=== PATIENT | female | born 1955 | race Caucasian/White ===

== ENCOUNTER 2016-12-19 16:04 | Emergency (ER) | payer BC ==
[~2016-12-19 16:04] MED LIST: ASPI81TA9 PO; BENA25CA2 PO; CHOL100025 CHEW; CHRO1TAB; CO Q100C9 PO; CYMB60CA PO; DICL75TA PO; DILT0.05 PO; DIOV320T PO; ECHI80CA PO; EPIP0.3I IM; FAMO1TAB73 PO; FENO50TA PO; FLUC150T PO; FURO20TA PO; GABA300C5 PO; KRIL300C PO; LEVEMIR SQ; MAGN500T5 PO; METF-382 PO; METF1000 PO; NEXI40CA PO; POTA-163 PO; PRED-503 PO; SIMV20TA PO
== END 2016-12-19 16:43 | disposition left against medical advice (07) ==
LOC: PHED 16:04
DX: M25.511 Pain in right shoulder (principal)
CPT/HCPCS: 99281

== ENCOUNTER 2016-12-19 17:20 | Emergency (ER) | payer BC ==
[~2016-12-19] VITALS: Ht 157.5 cm; Wt 87.0 kg
[2016-12-19 17:34] VITALS: BP 177/69; PULSE 86; RESP 20; TEMP 98.5; O2SAT 98
--- NOTE | 2016-12-19 17:59 | PD ---
HPI Chief Complaint: Musculoskeletal Complaint Time Seen by Provider: 17:53 Travel History International Travel<30 days: No Contact w/Intl Traveler<30days: No Traveled to known affect area: No History of Present Illness HPI Patient is a 61-year-old female presenting with right shoulder pain. Acute onset at noon today. Denies any trauma or injury. It is sharp. It is anterior and lateral. It does not radiate. It is worse with movement. She denies any weakness or paresthesia. She denies chest pain or shortness of breath. No attempts at palliation. She states she has arthralgias is on diclofenac for this. She has fibromyalgia and has home Percocet but she never takes it because it makes her too sleepy. She denies any pain or weakness in her mid to low back, left upper extremity, bilateral lower extremities and neck. She denies any speech difficulties. No history of chronic shoulder issues. PFSH Past Medical History Arthritis: Yes High Cholesterol: Yes Diabetes: Yes Patient Takes Glucophage: Yes Diminished Hearing: No Fibromyalgia: Yes GERD: Yes Hypertension: Yes Tetanus Vaccination: < 5 Years Influenza Vaccination: Yes ?: Not Past Surgical History Cholecystectomy: Yes Hysterectomy: Yes Tonsillectomy: Yes Other Surgery: Yes (BLADDER PACER) Social History Alcohol Use: Yes (OCCASIONAL) Tobacco Use: Yes (5 CIGS A DAY) Substance Use: No Allergies-Medications (Allergen,Severity, Reaction): Coded Allergies: No Known Allergies (Verified , 09/16/16) Reported Meds & Prescriptions Reported Meds & Active Scripts Active Reported Magnesium Gluconate 500 Mg Tab 400 Mg PO DAILY Chromium 1,000 Mcg Tab Co Q 10 (Coenzyme Q10 (Ubidecarenone)) 100 Mg Cap 200 Mg PO DAILY Krill Oil 300 Mg Cap 1 Cap PO DAILY Vitamin D3 (Cholecalciferol) 1,000 Unit Chew 1,000 Units CHEW DAILY Echinacea 80 Mg Cap 33 Mg PO DAILY Aspirin Low Dose (Aspirin) 81 Mg Tabdr 81 Mg PO DAILY Metformin ER (Metformin HCl) 1,000 Mg Sherita 500 Mg PO BID With evening meal Fluconazole 150 Mg Tab 150 Mg PO ONCE Gabapentin 300 Mg Cap 300 Mg PO BID Diclofenac Sodium DR (Diclofenac Sodium) 75 Mg Tabdr 75 Mg PO BID Potassium Chloride ER (Potassium Chloride) 20 Meq Tab 30 Meq PO DAILY Nexium (Esomeprazole DR) 40 Mg Capdr 40 Mg PO DAILY Diltiazem ER 24 HR 180 Mg Sherita 180 Mg PO DAILY Furosemide 20 Mg Tab 20 Mg PO BID Diovan (Valsartan) 320 Mg Tab 320 Mg PO DAILY Tricor (Fenofibrate) 145 Mg Tab 145 Mg PO DAILY Takw with food. Cymbalta DR (Duloxetine HCl) 60 Mg Capdr 60 Mg PO DAILY Simvastatin 20 Mg Tab 20 Mg PO DAILY Levemir Inj (Insulin Detemir) 1,000 unit/ 10 ML Vial 50 Units SQ HS Do not mix with any other Insulin. Review of Systems Except as stated in HPI: all other systems reviewed are Neg Physical Exam Narrative GENERAL: Well-developed and well-nourished adult female in no acute distress. SKIN: Warm and dry. Good turgor without tenting. HEAD: Normocephalic and atraumatic. EYES: PERRL bilaterally, 5mm. EOMI bilaterally. No injection or icterus present. No proptosis. Lids without edema or erythema. ENT: Buccal mucosa pink and moist. Oropharynx free of erythema, tonsillar hypertrophy, masses, swelling, asymmetry and exudates. Uvula midline and airway patent. NECK: Supple, no midline tenderness, crepitus or step-offs. Trachea midline, no JVD. Negative bilateral carotid bruits. No cervical or facial lymphadenopathy. CARDIOVASCULAR: Regular rate and rhythm without murmurs, rubs, clicks or gallops. Radial pulses 2+ bilaterally. Capillary refill less than 2 seconds distal tip of all fingers of right hand. RESPIRATORY: Clear to auscultation bilaterally with symmetrical rise and fall, no distress or use of accessory muscles. MUSCULOSKELETAL: Right shoulder is grossly unremarkable, no edema or discoloration or skin lesions. Patient is favoring the arm holding it up against her body and refuses to move it secondary to pain. There is no sulcus sign or squaring off. Diffusely tender to palpation over the posterior supraspinatus and infraspinatus and humeral head. No acromioclavicular, clavicular, sternal or clavicular, elbow or humeral shaft tenderness. Patient freely able to flex and extend the elbow on the right without difficulty. Refuses to move the shoulder so cannot evaluate special tests. Extremities without clubbing, cyanosis, or edema. No obvious deformities. NEUROLOGIC: CN II-XII grossly intact. Awake and alert. Strength 5/5 bilateral elbow extension, elbow flexion, wrist extension, wrist flexion. Sensation intact and strength 5/5 over radial, median, and ulnar nerve distributions bilaterally. Bilateral triceps, biceps and brachial radialis DTRs 2+. Negative bilateral Ilene sign. Normal speech. PSYCHIATRIC: Appropriate mood and affect; insight and judgment normal. Data Data Last Documented VS Vital Signs Date Time Temp Pulse Resp B/P Pulse Ox O2 Delivery O2 Flow Rate FiO2 12/19/16 17:34 98.5 86 20 177/69 98 Orders Shoulder, Complete (>2vws) (12/19/16 17:50) Ice/Cold Pack (12/19/16 17:50) Methylprednisolone So Succ Inj (Solumedr (12/19/16 18:00) Acetamin-Hydrocod 325-7.5 Mg ([place] 7.5 (12/19/16 18:30) Chest, Single Ap (12/19/16 ) Electrocardiogram (12/19/16 18:40) Splint Or Brace Apply/Monitor (12/19/16 19:48) MDM Medical Decision Making Medical Screen Exam Complete: Yes Emergency Medical Condition: Yes Interpretation(s) Last 24 hours Impressions Shoulder X-Ray 12/19/16 1750 Signed Impressions: Service Date/Time: December 18:05 - CONCLUSION: Minimal degenerative changes. Otherwise normal radiographic appearance of the right shoulder. No fracture or subluxation. Devin Holly MD Chest X-Ray 12/19/16 0000 Signed Impressions: Service Date/Time: December 19:32 - CONCLUSION: No evidence of acute cardiopulmonary disease. No free air demonstrated in the upper abdomen. Devin Holly MD Differential Diagnosis Shoulder pain versus tendinitis versus bursitis versus arthralgia Narrative Course Patient's a 61-year-old female with history of diabetes, hypertension, arthralgias and fibromyalgia worsening with acute onset right shoulder pain at noon today. Denies injury. On exam there is no edema or discoloration. Diffuse to tender to palpation. Cannot evaluate movements and strength in the shoulder as patient refuses to move it secondary to pain. The elbow, wrist and fingers are all nontender to palpation with normal range of motion and she is neurovascular intact over dermatomes in my attempts I can evaluate. She denies any abdominal pain and has had a history of cholecystectomy. Has had shingles in the past. As she is on chronic NSAID therapy patient was given slight Medrol 125 mg IM for anti-inflammatory effect as well as I ordered x-ray of the right shoulder. Shoulders x-rays unremarkable. Spoke with as I was concerned about possible non-muscular etiologies although she is rather point tender over muscles specifically. He also evaluated the patient and agrees is likely musculoskeletal. Recommend AP chest and EKG as well. Shoulder x-ray shows minimal degenerative changes, was unremarkable. AP chest x-ray is unremarkable. EKG shows right bundle tom block was present previously. There are T-wave inversions in some leads that are also present on previous EKG. No appreciable difference or new ST-T changes. Patient to continue sent to deny chest pain and in fact her 10 out of 10 pain is now 6 out of 10 after Lortab. She'll be discharged with diagnosis of shoulder pain. States pain to the patient that she should follow-up with her PCP tomorrow and return if develops any new or worsening symptoms. If she develops a rash not to be alarmed as this could be shingles and have reevaluation here or at PCP.See discharge paperwork for further instructions. The plan was discussed with the patient who acknowledged their understanding and agreement. Reinforced the follow-up with primary care is critically important. Patient instructed on emergent conditions that should prompt return to ED. Diagnosis Primary Impression: Shoulder pain, acute Qualified Code: M25.511 - Acute pain of right shoulder Patient Instructions: General Instructions, Shoulder Pain (ED) Additional Instructions: Rest for 24 hours, then gradually resume normal activity Avoid maneuvers or positions that aggravate the pain Avoid twisting/bending or lifting heavy items Take home medications as prescribed Take home Percocet as needed for pain Warm, moist heat applied to painful areas hourly as needed Wear shoulder sling as needed for pain but no longer than 1-2 days and then do range of motion exercises demonstrated to you Try to massage and stretch affected muscles after applying heat to speed recovery Follow-up with PCP in 1-2 days Return to ED for any acute worsening of symptoms Disposition: 01 DISCHARGE HOME Condition: Stable Devin Florence III Dec 19, 2016 17:59
[2016-12-19] MEDS ORDERED: methylPREDNISolone SOD SUCC 125 MG/2 ML VIAL IM ONE (18:00)
--- NOTE | 2016-12-19 18:25 | RADHPO ---
EXAM DATE/TIME: 12/19/2016 18:05 [facility] COMPARISON: No previous studies available for comparison. INDICATIONS : Patient states right shoulder pain, no known trauma to arm. MEDICAL HISTORY : None. SURGICAL HISTORY : None. ENCOUNTER: Initial ACUITY: 1 day PAIN SCORE: 10/10 LOCATION: Right Shoulder FINDINGS: Bones of the right shoulder are intact and normally aligned. Very mild osteoarthritis seen at the acr omioclavicular and glenohumeral joints. Soft tissues are within normal limits. CONCLUSION: Minimal degenerative changes. Otherwise normal radiographic appearance of the right shoulder. No frac ture or subluxation. Devin Holly MD on December 19, 2016 at 18:23 Board Certified Radiologist. This report was verified electronically.
[2016-12-19] MEDS ORDERED: ACETAMINOPHEN/HYDROcodone 325 MG/7.5 MG TAB PO ONE (18:30)
--- NOTE | 2016-12-19 19:44 | RADHPO ---
EXAM DATE/TIME: 12/19/2016 19:32 [facility] COMPARISON: No previous studies available for comparison. INDICATIONS : Shortness of breath. MEDICAL HISTORY : None. SURGICAL HISTORY : None. ENCOUNTER: Initial ACUITY: 1 day PAIN SCORE: 0/10 LOCATION: Bilateral chest FINDINGS: A single view of the chest demonstrates the lungs to be symmetrically aerated without evidence of mas s, infiltrate or effusion. The cardiomediastinal contours are unremarkable. Osseous structures are intact. CONCLUSION: No evidence of acute cardiopulmonary disease. No free air demonstrated in the upper abdomen. Devin Holly MD on December 19, 2016 at 19:42 Board Certified Radiologist. This report was verified electronically.
--- NOTE | 2016-12-20 13:30 | EKG ---
Date Performed: 12/19/2016 Time Performed: 19:47:54 PTAGE: 61 years EKG: Sinus rhythm Right bundle branch block Inferior T wave changes are nonspecific Abnormal ECG PREVIOUS TRACING : 09/16/2016 12.10.20 Since previous tracing, no significant change noted DOCTOR: Olive Ortega Interpretating Date/Time 12/20/2016 13:29:08
== END 2016-12-19 20:22 | disposition home or self-care (01) ==
LOC: PHEFT 17:20
DX: M25.511 Pain in right shoulder (principal); M79.7 Fibromyalgia; I10 Essential (primary) hypertension; F17.210 Nicotine dependence, cigarettes, uncomplicated
CPT/HCPCS: 71010; 73030; 93005; 96372; 99283; J2930

== ENCOUNTER 2018-05-19 18:35 | Observation (INO) ==
[2018-05-19] MEDS ORDERED: Sod Chloride 0.9% Inj 1,000 ML IV.SIG ONE ×2 (20:42→20:52)
--- NOTE | 2018-05-19 20:46 | ED ---
HPI General Chief complaint: Medical Clearance Stated complaint: dr epstein/blood sugar Time Seen by Provider: 05/19/18 20:40 History of Present Illness HPI narrative: The patient is a 63 year old female who presents to the [facility] emergency department with a history of difficult to control blood sugars over the last couple of weeks. She went to see her primary care physician on Friday and her insulin regimen was further adjusted. She reports that she was changed from 60 units of Levemir in the evening to 35 units in the a.m. and 35 units in the p.m. Since then her blood sugar has been even higher. She reports that she is also recently had problems with 2 teeth in the left maxilla. She reports that she was referred to the dentist, however the dentist refuses to do any interventions until her blood sugar is under better control. She was recently placed on antibiotic and Toradol. The antibiotic [facility]. The patient reports having polyuria, however not polydipsia. She reports that she did have one episode of vomiting last week. She reports having generalized weakness and fatigue. She denies having any known fevers or chills. Otherwise on review of systems she denies having any cough or congestion, neck pain, chest pain, shortness of breath, abdominal pain, diarrhea, dysuria, urinary urgency, or neurologic symptoms. Onset (ago): week(s) Related Data Allergies Allergy/AdvReac Type Severity Reaction Status Date / Time No Known Allergies Allergy Uncoded 09/16/16 12:27 Review of Systems ROS Unobtainable All other systems reviewed negative except as stated in HPI Except as stated in HPI: all other systems reviewed are negative PMFSH History History Provided By: Patient Medical History Medical History Arthritis (Acute) Carpal tunnel syndrome (Acute) Diabetes (Acute) GERD (gastroesophageal reflux disease) (Acute) HTN (hypertension) (Acute) H/O: hysterectomy (Acute) Hyperlipidemia (Acute) Surgical History Surgical History H/O knee surgery (Acute) History of bladder surgery (Acute) Hx of cholecystectomy (Acute) Social History Social History Substance History: No History of Abuse Smoking Status: Former smoker Tobacco Type: Cigarettes Packs Per Day: 1 Cigarettes Per Day: 20.0 years: 44 How Often Do You Have a Drink Containing Alcohol: Monthly or less Recent Travel in [facility] within the Last 8 Weeks: No Recent Out of Country Travel within the Last 8 Weeks: No Exam Const General: no acute distress [facility] Head: normocephalic and atraumatic Nose: no nasal discharge and no epistaxis Mouth: moist mucous membranes and other (The area of interest, the left maxilla the patient has dental decay of her most posterior 2 teeth, with surrounding gingival erythema, no edema, no abscess formation.) Teeth and gingiva: gingiva abnormal and poor dentition Throat: posterior oropharynx normal Eyes Sclera: normal sclerae Pupils: PERRL Neck Neck: trachea midline and no JVD Resp Effort & Inspection: no use of accessory muscles Auscultation: clear to auscultation bilaterally Cardio Rate: regular rate Rhythm: regular rhythm Heart Sounds: no gallops, no murmurs and no rubs GI Inspection: non-distended Palpation: soft, no hepatosplenomegaly and nontender Back/Spine/Pelvis Back: no CVA tenderness Thoracic/Lumbar Spine: thoracic and lumbar spine normal to inspection Skin General: dry skin (warm) Neuro General: alert and awake Cranial Nerves: other Speech: speech normal Motor: no movement abnormalities noted Extrem General: normal to inspection, no clubbing, no cyanosis, no edema and other (No calf tenderness on palpation.) Psych Mood: congruent mood Affect: normal affect Judgment: judgment good Course Hospital Course: During the course of the patient's emergency department visit, the patient's history, examination, and differential diagnosis were reviewed with the patient. The patient was placed on a apple turner with oximetry and frequent blood pressure monitoring. The patient had IV access obtained and blood work sent for analysis. The patient will undergo an evaluation to rule out an arrival was in the 500s. The patient will have a beta hydroxybutyrate ordered, VBG ordered. In the meantime, the patient was started on normal saline 1 L IV fluid bolus. The patient was given Augmentin 875 mg for gingivitis associated with dental decay of the left maxilla. The patient's hyperglycemia could certainly be contributed to by a dental infection. Consultations Consultation #1: The patient's case including history, pertinent physical examination findings, and laboratory studies were discussed with FP resident. It was agreed that the patient would be admitted to the FP residents service. Initial Documented Vital Signs Temperature 98.6 F 05/19/18 20:04 Respiratory Rate 16 05/19/18 20:04 Blood Pressure 210/89 H 05/19/18 20:04 Pulse Oximetry 98 05/19/18 20:04 Last Documented Vital Signs Temperature 98.6 F 05/19/18 20:04 Pulse Rate 86 05/19/18 21:23 Respiratory Rate 18 05/19/18 21:23 Blood Pressure 187/87 H 05/19/18 21:23 Pulse Oximetry 98 05/19/18 21:23 Medical Decision Making MDM Narrative Medical decision making narrative: The patients initial evaluation and is remarkable for a white count of 7.3, hemoglobin 16.8, differential is remarkable for a monocytosis at 8.1. PT 9.4, PTT 21.9. ABG reveals a pH of 7.48, ruling out DKA, therefore the patient will be given regular insulin 10 units subcutaneously 1. CMP is remarkable for a sodium of 132, glucose 425, lipase 3065, therefore the patient will be admitted to the hospital for acute pancreatitis, chloride 97, calcium 10.4, BUN 28. CPK within normal limits, troponin I is less than 0.02. Chest x-ray that shows no acute abnormality. Given the patient's acute pancreatitis, a CT scan of the abdomen and pelvis will be ordered to further evaluate. The patient has no signs of increased liver function tests to suggest a gallstone pancreatitis. The patient is followed by the [facility] resident, Dr. Gonzalez, therefore the patient will be admitted to the [facility] teaching service. The patient's results were discussed with the patient, including the plan of care. I explained that further testing and/ or monitoring is indicated based on the patient's history, examination, and/ or laboratory findings. Therefore, I recommended admission for additional evaluation. The patient expressed understanding and was agreeable with this plan. The patient was admitted to the hospital in stable condition and sent to a bed under the care of the [facility] practice resident. Differential Diagnosis Differential Diagnosis: Acute pancreatitis, versus DKA, versus hyperglycemic hyperosmolality, versus dehydration, versus other electrolyte derangements. Medical Records Medical records reviewed: Yes I reviewed the patient's medical records. Lab Data Lab results reviewed: Yes I reviewed the patient's lab results. Result diagrams: 05/19/18 21:00 05/19/18 21:00 Lab Results 05/19/18 05/19/18 05/19/18 Range/Units 20:20 21:00 21:00 WBC 7.3 (4.0-11.0) th/mm3 RBC 5.67 H (4.00-5.30) mil/mm3 Hgb 16.8 H (11.6-15.3) gm/dL Hct 49.6 H (35.0-46.0) % MCV 87.6 (80.0-100.0) fL MCH 29.7 (27.0-34.0) pg MCHC 33.9 (32.0-36.0) % RDW 12.7 (11.6-17.2) % Plt Count 278 (150-450) th/mm3 MPV 7.9 (7.0-11.0) fL Neut % (Auto) 51.1 (16.0-70.0) % Lymph % (Auto) 37.8 (9.0-44.0) % [place] % (Auto) 8.1 H (0.0-8.0) % Eos % (Auto) 2.1 (0.0-4.0) % Baso % (Auto) 0.9 (0.0-2.0) % Neut # (Auto) 3.8 (1.8-7.7) th/mm3 Lymph # (Auto) 2.8 (1.0-4.8) th/mm3 [place] # (Auto) 0.6 (0.0-0.9) th/mm3 Eos # (Auto) 0.2 (0.0-0.4) th/mm3 Baso # (Auto) 0.1 (0.0-0.2) th/mm3 WBC Differential . Differential Comment Auto diff final PT 9.4 L (9.8-11.6) sec INR 0.9 Ratio APTT 21.9 L (24.3-30.1) sec Puncture Site Rn reji from iv Patient Temperature 98.6 VBG pH 7.48 H (7.360-7.400) VBG pCO2 34 L (44-48) mmHG VBG pO2 36 (35-40) mmHG VBG HCO3 25 (22-26) mmol/L VBG O2 Saturation 66 L (70-76) % VBG O2 Content 14.7 (9.0-17.0) Vol % VBG Base Excess 1.6 (-2-2) mmol/L VBG Carboxyhemoglobin 0.0 (0-4) % VBG Methemoglobin 0.6 (0-2) % Hemoglobin 15.9 (12.0-16.0) G/DL O2 Delivery Device Room air Inspired O2 21 % Critical Value No Sodium (136-145) meq/L Potassium (3.5-5.1) meq/L Chloride (98-107) meq/L Carbon Dioxide (21.0-32.0) meq/L Anion Gap (5-15) meq/L BUN (7-18) mg/dL Creatinine (0.50-1.00) mg/dL Estimated GFR (>89) mL/min Random Glucose (74-106) mg/dL Calcium (8.5-10.1) mg/dL Magnesium (1.5-2.5) mg/dL Total Bilirubin (0.2-1.0) mg/dL AST (15-37) U/L ALT (10-53) U/L Alkaline Phosphatase (45-117) U/L Total Creatine Kinase (26-192) U/L Troponin I (0.02-0.05) ng/mL Total Protein (6.4-8.2) g/dL Albumin (3.4-5.0) g/dL Lipase (73-393) U/L Beta-Hydroxybutyric Acd (0.00-0.39) mmol/L 05/19/18 Range/Units 21:00 WBC (4.0-11.0) th/mm3 RBC (4.00-5.30) mil/mm3 Hgb (11.6-15.3) gm/dL Hct (35.0-46.0) % MCV (80.0-100.0) fL MCH (27.0-34.0) pg MCHC (32.0-36.0) % RDW (11.6-17.2) % Plt Count (150-450) th/mm3 MPV (7.0-11.0) fL Neut % (Auto) (16.0-70.0) % Lymph % (Auto) (9.0-44.0) % [place] % (Auto) (0.0-8.0) % Eos % (Auto) (0.0-4.0) % Baso % (Auto) (0.0-2.0) % Neut # (Auto) (1.8-7.7) th/mm3 Lymph # (Auto) (1.0-4.8) th/mm3 [place] # (Auto) (0.0-0.9) th/mm3 Eos # (Auto) (0.0-0.4) th/mm3 Baso # (Auto) (0.0-0.2) th/mm3 WBC Differential Differential Comment PT (9.8-11.6) sec INR Ratio APTT (24.3-30.1) sec Puncture Site Patient Temperature VBG pH (7.360-7.400) VBG pCO2 (44-48) mmHG VBG pO2 (35-40) mmHG VBG HCO3 (22-26) mmol/L VBG O2 Saturation (70-76) % VBG O2 Content (9.0-17.0) Vol % VBG Base Excess (-2-2) mmol/L VBG Carboxyhemoglobin (0-4) % VBG Methemoglobin (0-2) % Hemoglobin (12.0-16.0) G/DL O2 Delivery Device Inspired O2 % Critical Value Sodium 132 L (136-145) meq/L Potassium 4.1 (3.5-5.1) meq/L Chloride 97 L (98-107) meq/L Carbon Dioxide 22.7 (21.0-32.0) meq/L Anion Gap 12 (5-15) meq/L BUN 28 H (7-18) mg/dL Creatinine 0.78 (0.50-1.00) mg/dL Estimated GFR 75 L (>89) mL/min Random Glucose 425 H (74-106) mg/dL Calcium 10.4 H (8.5-10.1) mg/dL Magnesium 2.2 (1.5-2.5) mg/dL Total Bilirubin 0.6 (0.2-1.0) mg/dL AST 17 (15-37) U/L ALT 27 (10-53) U/L Alkaline Phosphatase 112 (45-117) U/L Total Creatine Kinase 58 (26-192) U/L Troponin I Less than 0.02 L (0.02-0.05) ng/mL Total Protein 7.4 (6.4-8.2) g/dL Albumin 3.6 (3.4-5.0) g/dL Lipase 3065 H (73-393) U/L Beta-Hydroxybutyric Acd 0.22 (0.00-0.39) mmol/L Imaging Data Radiologist's impression: ITS Impressions Chest X-Ray 05/19/18 20:42 CONCLUSION: Negative examination. ECG Data Attestation: I personally reviewed and interpreted this ECG as follows: Interpretation: The patient had an EKG done on arrival she has a sinus rhythm heart rate of 67, QRS duration 151 ms, QTC 463 ms. Right bundle branch block is noted. No acute ST segment elevation is noted. Discharge Plan Discharge Disposition Patient Disposition: 30 Still Patient Discharge Details Discharge Problem: Acute pancreatitis Physicians Team ED Provider: [place] Men[place] Primary Care Provider: Samm Gonzalez Attending Provider: Sandoval Nina ED Status: Admitted Patient
[2018-05-19] MEDS ORDERED: Amoxicillin/Clavulanate 875/125 MG Tablet PO ONE (20:52)
[2018-05-19 21:12] LABS: Baso # (Auto) 0.1 th/mm3 (0.0-0.2); Baso % (Auto) 0.9 % (0.0-2.0); Eos # (Auto) 0.2 th/mm3 (0.0-0.4); Eos % (Auto) 2.1 % (0.0-4.0); Hematocrit 49.6 % (35.0-46.0); Hemoglobin 16.8 gm/dL (11.6-15.3); Lymph # (Auto) 2.8 th/mm3 (1.0-4.8); Lymph % (Auto) 37.8 % (9.0-44.0); Mean Corpuscular HGB Conc 33.9 % (32.0-36.0); Mean Corpuscular Hemoglobin 29.7 pg (27.0-34.0); Mean Corpuscular Volume 87.6 fL (80.0-100.0); Mean Platelet Volume 7.9 fL (7.0-11.0); Mono # (Auto) 0.6 th/mm3 (0.0-0.9); Mono % (Auto) 8.1 % (0.0-8.0); Neut # (Auto) 3.8 th/mm3 (1.8-7.7); Neut % (Auto) 51.1 % (16.0-70.0); Platelet Count 278 th/mm3 (150-450); Red Blood Count 5.67 mil/mm3 (4.00-5.30); Red Cell Distribution Width 12.7 % (11.6-17.2); White Blood Count 7.3 th/mm3 (4.0-11.0)
[2018-05-19 21:24] LABS: Activated Partial Thrombo Time 21.9 sec (24.3-30.1); INR 0.9 Ratio; Prothrombin Time 9.4 sec (9.8-11.6)
--- NOTE | 2018-05-19 21:32 | XR ---
EXAM DATE: 05/19/2018 9:24 PM EDT AGE/SEX: 63 years / Female INDICATIONS: Shortness of breath. CLINICAL DATA: This is the patient's initial encounter. Patient reports that signs and symptoms have been present for 1 day and indicates a pain score of 0/10. MEDICAL/SURGICAL HISTORY: Hypertension. Diabetes mellitus type II. None. COMPARISON: Chest x-ray 12/19/2016 . FINDINGS: A single AP view of the chest demonstrates the lungs to be symmetrically aerated without evidence of mass, infiltrate or effusion. The cardiomediastinal contours are unremarkable. Osseous structures a re intact. CONCLUSION: Negative examination. Electronically signed by: Ulices Meek MD 05/19/2018 9:30 PM EDT
[2018-05-19 21:40] LABS: Alanine Aminotransferase 27 U/L (10-53); Albumin 3.6 g/dL (3.4-5.0); Alkaline Phosphatase 112 U/L (45-117); Anion Gap 12 meq/L (5-15); Aspartate Aminotransferase 17 U/L (15-37); Beta Hydroxybutyric Acid 0.22 mmol/L (0.00-0.39); Blood Urea Nitrogen 28 mg/dL (7-18); Calcium 10.4 mg/dL (8.5-10.1); Carbon Dioxide 22.7 meq/L (21.0-32.0); Chloride 97 meq/L (98-107); Glomerular Filtration Rate 75 mL/min (>89); Glucose,Random 425 mg/dL (74-106); Lipase 3065 U/L (73-393); Magnesium 2.2 mg/dL (1.5-2.5); Potassium 4.1 meq/L (3.5-5.1); Sodium 132 meq/L (136-145); Total Protein 7.4 g/dL (6.4-8.2)
[2018-05-19 21:41] LABS: VBG Base Excess 1.6 mmol/L (-2-2); VBG Blood Gas Oxygen Content 14.7 Vol % (9.0-17.0); VBG PCO2 34 mmHG (44-48); VBG PH 7.48 (7.360-7.400); VBG PO2 36 mmHG (35-40)
[2018-05-19 21:43] LABS: Creatine Kinase 58 U/L (26-192)
--- NOTE | 2018-05-19 22:15 | P.HPFP ---
History of Present Illness Primary Care Physician: Samm Gonzalez MD, R2 Chief Complaint: High blood sugar, sent by PCP History of Present Illness: Patient is a 63-year-old female with past history of diabetes, GERD, hyperlipidemia who presents today with high blood sugar, sent by her PCP. She states her blood sugars 484 prior to coming in. She reports that her PCP has been attempting to increase her long-acting insulin, initially on 50 units at bedtime, increased to 65 units at bedtime, increased this past Friday to 35 units twice daily. She reports feeling "like my blood sugar is high" after changing to the twice daily schedule. She reports increased sweating today, lightheadedness, dizziness, polydipsia, polyuria, lethargy. No dysuria, changes in urine color/smell. Denies chest pain, shortness of breath, nausea, vomiting, fever, chills, diarrhea, constipation, red or black stools, abdominal pain. The patient also reports she has an infection of the top left area of her mouth. She has been attempting to go to a dentist to have this fixed. She reports that the dentist has refused to do so at this time due to her uncontrolled blood sugars. Her PCP is following this up. She reports she had a Toradol shot which worked very well for that her mouth pain. Denies redness, swelling of her face, blurry vision, double vision, sour taste in mouth, pus in mouth. - Diagnosis (1) Acute pancreatitis (2) Hyperglycemia (3) Mouth pain - Inpatient Certification If this patient has been admitted as an Inpatient: I certify that the inpatient services were ordered in accordance with Medicare regulations governing the order. This includes certification that hospital inpatient services are reasonable and necessary and in the case of services not specified as inpatient-only under 42 CFR 419.22(n), that they are appropriately provided as inpatient services in accordance to with the 2-midnight benchmark under 43 CFR 412.3(e) Review of Systems Constitutional: Reports daytime sleepiness, Reports lack of energy, Reports weakness, Denies weight gain, Denies weight loss Eyes: Denies blurry vision, Denies double vision, Denies dry eyes, Denies irritation, Denies itchy eyes, Denies loss of vision, Denies pain, Denies sensitivity to light Ears, Nose, Mouth, and Throat: Reports dental pain, Reports dizziness, Reports dry mouth, Reports mouth pain, Denies abnormal hearing, Denies ear discharge, Denies ear pain, Denies hearing loss, Denies lip swelling, Denies mouth lesions , Denies nasal discharge, Denies neck pain, Denies nose pain, Denies ringing in the ears, Denies sore throat, Denies throat swelling, Denies tongue swelling Cardiovascular: Denies chest pain, Denies chest pain at rest, Denies chest pain with activity, Denies excessive sweating, Denies fainting, Denies fast heart rate, Denies generalized swelling, Denies shortness of breath, Denies slow heart rate Respiratory: Denies cough, Denies coughing up blood, Denies excessive phlegm production, Denies shortness of breath, Denies wheezing Gastrointestinal: Reports heartburn, Denies abdominal pain, Denies black, tarry stools, Denies bright, red blood in stools, Denies change in bowel habits, Denies constant urge to pass stool, Denies change in stools, Denies coffee ground vomit, Denies constipation, Denies incontinent of stools, Denies loose stools, Denies nausea, Denies vomiting, Denies vomiting blood Genitourinary: Denies blood in urine, Denies difficulty urinating, Denies painful urination, Denies urinary incontinence Musculoskeletal: Denies abnormal walking, Denies body aches, Denies joint pain, Denies muscle weakness Skin/Breast: Denies change in skin color, Denies changing lesions, Denies dry skin, Denies lesions, Denies nail changes, Denies skin ulcer Neurologic: Denies abnormal hearing, Denies abnormal movements, Denies abnormal speech, Denies localized weakness, Denies loss of vision, Denies memory loss, Denies numbness, Denies other visual disturbances Psychiatric: Denies abnormal sleep pattern, Denies anxiety, Denies confusion, Denies depression Endocrine: Reports excessive sweating, Reports increased thirst, Reports increased urination, Denies cold intolerance Hematologic/Lymphatic: Denies easy bleeding, Denies easy bruising Allergic/Immunologic: Denies GI upset with certain foods, Denies hives, Denies itchy eyes, Denies lip swelling PMFSH - History History Provided By: Patient - Medical History Medical History: Medical History (Last Updated 05/19/18 @ 21:44 by [place] Menchaca MD) Arthritis Carpal tunnel syndrome Diabetes GERD (gastroesophageal reflux disease) HTN (hypertension) H/O: hysterectomy Hyperlipidemia - Surgical History Surgical History: Surgical History (Last Updated 05/19/18 @ 23:16 by Yossi Farias MD, R1) H/O knee surgery History of bladder surgery Hx of cholecystectomy - Tobacco History Tobacco Use In Past 30 Days: No Smoking Status: Former smoker Tobacco Type: Cigarettes Packs Per Day: 1 years: 44 - Alcohol History How Often Do You Have a Drink Containing Alcohol: Monthly or less - Substance Use History Substance History: No History of Abuse - Travel History Recent Travel in the [place] Within the Last 8 Weeks: No Recent Travel Out of the Country Within the Last 8 Weeks: No - Immunization History Tetanus Immunization: >5 Years Hx Influenza Vaccine This Season: Yes Medications and Allergies Active Medications: Active Medications Sodium Chloride (Ns Flush) 2 ml IV.FLUSH UNSCH PRN PRN Reason: FLUSH AFTER USING IV ACCESS Allergies Allergy/AdvReac Type Severity Reaction Status Date / Time No Known Allergies Allergy Uncoded 09/16/16 12:27 Home Medications Medication Instructions Recorded Confirmed Type Cymbalta PO BID 05/20/18 History aspirin [Aspir-81] 81 mg PO DAILY 05/20/18 05/20/18 History gabapentin PO BID 05/20/18 History insulin detemir U-100 [Levemir 35 units SUB-Q BID 05/20/18 05/20/18 History U-100 Insulin] metformin 1,000 mg PO BID 05/20/18 05/20/18 History simvastatin PO DAILY 05/20/18 History Exam Vital signs: Vital Signs 05/19/18 20:04 05/19/18 21:22 05/19/18 21:23 Temperature 98.6 F Pulse Rate 86 Respiratory Rate 16 18 Blood Pressure 210/89 H 187/87 H Pulse Oximetry 98 98 98 Intake & Output 05/19/18 05/19/18 05/20/18 06:59 18:59 06:59 Weight 81.647 kg Narrative: GENERAL: Laying in bed, no acute distress SKIN: Warm and dry. HEAD: Atraumatic. Normocephalic. EYES: Pupils equal and round. No scleral icterus. No injection or drainage. ENT: No nasal bleeding or discharge. Mucous membranes pink and moist. Poor dentition. Stensen's duct without purulent discharge. NECK: Trachea midline. No JVD. CARDIOVASCULAR: Regular rate and rhythm. RESPIRATORY: No accessory muscle use. Clear to auscultation. Breath sounds equal bilaterally. GASTROINTESTINAL: Abdomen soft, nondistended. Nontender to light palpation, however tender to deep palpation in the mid epigastric area. hepatic and splenic margins not palpable. MUSCULOSKELETAL: Extremities without clubbing, cyanosis, or edema. No obvious deformities. NEUROLOGICAL: Awake and alert. No obvious cranial nerve deficits. Motor grossly within normal limits. Five out of 5 muscle strength in the arms and legs. Normal speech. PSYCHIATRIC: Appropriate mood and affect; insight and judgment normal. Results - Labs Result diagrams: 05/20/18 03:18 05/19/18 21:00 Abnormal lab results 05/19/18 05/19/18 05/19/18 Range/Units 20:20 21:00 21:00 RBC 5.67 H (4.00-5.30) mil/mm3 Hgb 16.8 H (11.6-15.3) gm/dL Hct 49.6 H (35.0-46.0) % [place] % (Auto) 8.1 H (0.0-8.0) % PT 9.4 L (9.8-11.6) sec APTT 21.9 L (24.3-30.1) sec VBG pH 7.48 H (7.360-7.400) VBG pCO2 34 L (44-48) mmHG VBG O2 Saturation 66 L (70-76) % Sodium (136-145) meq/L Chloride (98-107) meq/L BUN (7-18) mg/dL Estimated GFR (>89) mL/min Random Glucose (74-106) mg/dL Calcium (8.5-10.1) mg/dL Troponin I (0.02-0.05) ng/mL Lipase (73-393) U/L 05/19/18 Range/Units 21:00 RBC (4.00-5.30) mil/mm3 Hgb (11.6-15.3) gm/dL Hct (35.0-46.0) % [place] % (Auto) (0.0-8.0) % PT (9.8-11.6) sec APTT (24.3-30.1) sec VBG pH (7.360-7.400) VBG pCO2 (44-48) mmHG VBG O2 Saturation (70-76) % Sodium 132 L (136-145) meq/L Chloride 97 L (98-107) meq/L BUN 28 H (7-18) mg/dL Estimated GFR 75 L (>89) mL/min Random Glucose 425 H (74-106) mg/dL Calcium 10.4 H (8.5-10.1) mg/dL Troponin I Less than 0.02 L (0.02-0.05) ng/mL Lipase 3065 H (73-393) U/L Short CBC 05/19/18 Range/Units 21:00 WBC 7.3 (4.0-11.0) th/mm3 Hgb 16.8 H (11.6-15.3) gm/dL Hct 49.6 H (35.0-46.0) % Plt Count 278 (150-450) th/mm3 BMP 05/19/18 21:00 Sodium 132 L Potassium 4.1 Chloride 97 L Carbon Dioxide 22.7 BUN 28 H Creatinine 0.78 Calcium 10.4 H Cardiac Enzymes 05/19/18 Range/Units 21:00 Total Creatine Kinase 58 (26-192) U/L Troponin I Less than 0.02 L (0.02-0.05) ng/mL Liver Function 05/19/18 Range/Units 21:00 Total Bilirubin 0.6 (0.2-1.0) mg/dL AST 17 (15-37) U/L ALT 27 (10-53) U/L Alkaline Phosphatase 112 (45-117) U/L Albumin 3.6 (3.4-5.0) g/dL - Imaging Impressions Chest X-Ray 05/19/18 20:42 CONCLUSION: Negative examination. Caprini VTE Risk Assessment Caprini VTE Risk Assessment: Moderate/High Risk (score >= 2) Caprini Risk Assessment Model: Point Value = 1 Point Value = 2 Point Value = 3 Point Value = 5 Age 41-60 Minor surgery BMI > 25 kg/m2 Swollen legs Varicose veins or History of unexplained or recurrent spontaneous Oral contraceptives or hormone replacement Sepsis (< 1 month) Serious lung disease, including pneumonia (< 1 month) Abnormal pulmonary function Acute myocardial infarction Congestive heart failure (< 1 month) History of inflammatory bowel disease Medical patient at bed rest Age 61-74 Arthroscopic surgery Major open surgery (> 45 min) Laparoscopic surgery (> 45 min) Malignancy Confined to bed (> 72 hours) Immobilizing plaster cast Central venous access Age >= 75 History of VTE Family history of VTE Factor V Leiden Prothrombin [id number] Lupus anticoagulant Anticardiolipin antibodies Elevated serum homocysteine Heparin-induced thrombocytopenia Other congenital or acquired thrombophilia Stroke (< 1 month) Elective arthroplasty Hip, pelvis, or leg fracture Acute spinal cord injury (< 1 month) Prophylaxis Regimen: Total Risk Factor Score Risk Level Prophylaxis Regimen 0-1 Low Early ambulation 2 Moderate Order ONE of the following: *Sequential Compression Device (SCD) *Heparin 5000 units SQ BID 3-4 Higher Order ONE of the following medications: *Heparin 5000 units SQ TID *Enoxaparin/Lovenox 40 mg SQ daily (WT < 150 kg, CrCl > 30 mL/min) *Enoxaparin/Lovenox 30 mg SQ daily (WT < 150 kg, CrCl > 10-29 mL/min) *Enoxaparin/Lovenox 30 mg SQ BID (WT < 150 kg, CrCl > 30 mL/min) AND/OR *Sequential Compression Device (SCD) 5 or more Highest Order ONE of the following medications: *Heparin 5000 units SQ TID (Preferred with Epidurals) *Enoxaparin/Lovenox 40 mg SQ daily (WT < 150 kg, CrCl > 30 mL/min) *Enoxaparin/Lovenox 30 mg SQ daily (WT < 150 kg, CrCl > 10-29 mL/min) *Enoxaparin/Lovenox 30 mg SQ BID (WT < 150 kg, CrCl > 30 mL/min) AND *Sequential Compression Device (SCD) Assessment and Plan - Assessment (1) Acute pancreatitis Code(s): K85.90 - Acute pancreatitis without necrosis or infection, unspecified Status: Acute Plan: Patient with lipase of 3065 and mild mid epigastric tenderness on admission. -Patient currently without nausea, vomiting, significant abdominal pain, tolerating p.o. Will continue p.o. nutrition at this time, will reassess in the morning. Also attempting to aggressively correct hyperglycemia, safer to do with diet. -Normal saline at approximately 5 mL/kg/h -Limited pain, Toradol with morphine for breakthrough -Follow-up a.m. lipase -Monitor electrolytes (2) Hyperglycemia Code(s): R73.9 - Hyperglycemia, unspecified Status: Acute Plan: Patient found to have blood glucose of 425 in the hospital, reports 484 at home. Not currently in DKA. -Hold home p.o. medications -Sliding scale insulin -Consider restarting nighttime Levemir, used to be on 65 HS, recently changed to 35 BID (3) Mouth pain Code(s): K13.79 - Other lesions of oral mucosa Status: Acute Plan: Reports left upper mouth/face pain she is attempting to see a dentist for. No overt cellulitis or parotitis. -Pain management as above -Continue amoxicillin 500 mg Q8 hours prescribed outpatient - Assessment and Plan 63-year-old female with past history of diabetes, hyperlipidemia, GERD who presented via PCP recommendation for symptomatic hyperglycemia. Found to have an elevated lipase into the 3000s in the ED, epigastric tenderness on deep palpation. Likely pancreatitis, no known source at time of admission. Discussed Condition With: ED physician
[2018-05-19] MEDS ORDERED: Acetaminophen 325 MG Tablet PO PRN ×2 (23:35→23:51)
[2018-05-19] MEDS ORDERED: Temazepam 15 MG Capsule PO PRN (23:35)
[2018-05-19] MEDS ORDERED: Dextrose 50% in Water 50 ML Vial IV.PUSH PRN (23:47)
[2018-05-19] MEDS ORDERED: Morphine Inj 4 MG/ML Vial IV.PUSH PRN (23:51)
[2018-05-19] MEDS ORDERED: Naloxone Inj 0.4 MG/ML Vial IV.PUSH PRN (23:51)
[2018-05-19] MEDS ORDERED: Ketorolac Inj 30 MG/ML (IVP) Vial IV.PUSH PRN (23:51)
[2018-05-20] MEDS: Sodium Chloride 0.45 % Inj 1,000 ML IV.CONT SCH ×6 (01:22→17:04)
[2018-05-20 03:37] LABS: Baso # (Auto) 0.1 th/mm3 (0.0-0.2); Baso % (Auto) 0.7 % (0.0-2.0); Eos # (Auto) 0.2 th/mm3 (0.0-0.4); Eos % (Auto) 3.2 % (0.0-4.0); Hematocrit 43.6 % (35.0-46.0); Hemoglobin 14.9 gm/dL (11.6-15.3); Lymph % (Auto) 43.9 % (9.0-44.0); Mean Corpuscular HGB Conc 34.2 % (32.0-36.0); Mean Corpuscular Hemoglobin 29.6 pg (27.0-34.0); Mean Corpuscular Volume 86.5 fL (80.0-100.0); Mean Platelet Volume 7.7 fL (7.0-11.0); Mono # (Auto) 0.7 th/mm3 (0.0-0.9); Mono % (Auto) 9.8 % (0.0-8.0); Neut # (Auto) 2.9 th/mm3 (1.8-7.7); Neut % (Auto) 42.4 % (16.0-70.0); Platelet Count 237 th/mm3 (150-450); Red Blood Count 5.04 mil/mm3 (4.00-5.30); Red Cell Distribution Width 12.6 % (11.6-17.2); White Blood Count 6.8 th/mm3 (4.0-11.0)
[2018-05-20] MEDS: Enoxaparin Inj 40 MG/0.4 ML Syringe SQ SCH ×2 (04:03→23:03)
[2018-05-20 05:02] LABS: Alanine Aminotransferase 23 U/L (10-53); Alkaline Phosphatase 81 U/L (45-117); Anion Gap 10 meq/L (5-15); Aspartate Aminotransferase 13 U/L (15-37); Blood Urea Nitrogen 19 mg/dL (7-18); Calcium 8.4 mg/dL (8.5-10.1); Carbon Dioxide 23.6 meq/L (21.0-32.0); Chloride 106 meq/L (98-107); Glomerular Filtration Rate Greater Than 89 mL/min (>89); Glucose,Random 186 mg/dL (74-106); Lipase 941 U/L (73-393); Potassium 3.3 meq/L (3.5-5.1); Sodium 140 meq/L (136-145)
[2018-05-20] MEDS: Duloxetine 60 MG DR Capsule PO SCH ×2 (09:30→21:00)
[2018-05-20] MEDS: Insulin NovoLOG Aspart Correctional Sugar Inj SQ SCH ×4 (09:30→22:00)
[2018-05-20] MEDS: Gabapentin 300 MG Capsule PO SCH ×2 (09:30→22:00)
[2018-05-20] MEDS: Senna/Docusate Sodium 8.6/50 MG Tablet PO SCH (09:32)
[2018-05-20] MEDS: Insulin Detemir Inj 1,000 UNIT/10 ML Vial SQ SCH (09:43)
--- NOTE | 2018-05-20 09:57 | P.HPFP ---
History of Present Illness Primary Care Physician: Samm Gonzalez MD, R2 Chief Complaint: High blood sugar, sent by PCP History of Present Illness: No acute events overnight and patient is only complaining of a significant headache for which she just received Tylenol. She was having some jaw pain this morning, however responded well to a Toradol injection. She does endorse some mild epigastric discomfort, however this is not significant or affecting her ability to eat. She does feel hungry and would like to order breakfast. She denies any fevers or chills, she denies any nausea or vomiting, she denies any issues with bowel/bladder. In summary, this is a 63-year-old female with history of diabetes who was sent in by her PCP for hyperglycemia. Her blood sugar at home was 484 prior to coming in, and initial check in the emergency department was 425. She has been working with her PCP recently for hyperglycemia with increasing her insulin at home. Her current insulin at home is 35 units of Levemir twice daily, which has been increased from 50 units nightly. She has been on this new regimen for 5 days with continually elevated blood sugars. She also endorses polyuria and polydipsia and occasional mild epigastric abdominal pain. She denies any fevers or chills, she denies any lightheadedness or dizziness, she denies any decrease in appetite. The patient also reports she has an infection of the top left area of her mouth. She has been attempting to go to a dentist to have this fixed. She reports that the dentist has refused to do so at this time due to her uncontrolled blood sugars. Her PCP is following this up and had ordered Augmentin for her to take, however she had not received this medication from her mail order pharmacy and has not taken any antibiotics prior to admission. She reports she had a Toradol shot which worked very well for that her mouth pain. Denies redness, swelling of her face, blurry vision, double vision, sour taste in mouth, pus in mouth. - Diagnosis (1) Hyperglycemia (2) Acute pancreatitis (3) Hypertension (4) Mouth pain (5) Hyperlipidemia - Inpatient Certification If this patient has been admitted as an Inpatient: I certify that the inpatient services were ordered in accordance with Medicare regulations governing the order. This includes certification that hospital inpatient services are reasonable and necessary and in the case of services not specified as inpatient-only under 42 CFR 419.22(n), that they are appropriately provided as inpatient services in accordance to with the 2-midnight benchmark under 43 CFR 412.3(e) Estimated Total Length of Stay (Days): 2 Plans for Post Hospital Care: Home Review of Systems All other systems reviewed negative except as stated in HPI Ears, Nose, Mouth, and Throat: Reports dental pain, Reports facial pain, Reports mouth pain Gastrointestinal: Reports abdominal pain Endocrine: Reports increased thirst, Reports increased urination PMFSH - History History Provided By: Patient - Medical History Medical History: Medical History (Last Updated 05/19/18 @ 21:44 by [place] Menchaca MD) Arthritis Carpal tunnel syndrome Diabetes GERD (gastroesophageal reflux disease) HTN (hypertension) H/O: hysterectomy Hyperlipidemia - Surgical History Surgical History: Surgical History (Last Updated 05/19/18 @ 23:16 by Yossi Farias MD, R1) H/O knee surgery History of bladder surgery Hx of cholecystectomy - Tobacco History Second Hand Smoke Exposure: No Tobacco Use In Past 30 Days: No Smoking Status: Former smoker Tobacco Type: Cigarettes Packs Per Day: 1 years: 44 - Alcohol History How Often Do You Have a Drink Containing Alcohol: Monthly or less - Substance Use History Substance History: No History of Abuse - Travel History Recent Travel in the [place] Within the Last 8 Weeks: No Recent Travel Out of the Country Within the Last 8 Weeks: No - Immunization History Tetanus Immunization: >5 Years Hx Influenza Vaccine This Season: Yes Medications and Allergies Active Medications: Active Medications Acetaminophen (Tylenol) 650 mg PO Q4H PRN PRN Reason: Temp > 100.4 Acetaminophen (Tylenol) 650 mg PO Q6H PRN PRN Reason: PAIN SCALE 1 TO 2 Last Admin: 05/20/18 08:24 Dose: 650 mg Al Hydroxide/Mg Hydroxide (Milk Of Magnesia Liq) 30 ml PO Q12H PRN PRN Reason: Mild Constipation Amoxicillin (Amoxil) 500 mg PO TID [facility]UC[facility] Aspirin (Ecotrin) 81 mg PO DAILY [facility] Dextrose (D50w Vial) 50 ml IV.PUSH UNSCH PRN PRN Reason: PER HYPOGLYCEMIA PROTOCOL Duloxetine HCl (Cymbalta) 60 mg PO BID [facility] Enoxaparin Sodium (Lovenox Inj) 40 mg SQ Q24H [facility] Last Admin: 05/20/18 04:03 Dose: 40 mg Gabapentin (Neurontin) 300 mg PO BID [facility] Glucagon (Glucagon Inj) 1 mg OTHER PRN PRN PRN Reason: for Hypoglycemia Protocol Sodium Chloride (1/2 Normal Saline Inj) 1,000 mls @ 400 mls/hr IV.CONT .Q2H30M [facility] Last Admin: 05/20/18 09:04 Dose: Not Given Insulin Aspart (Novolog Insulin Suppl Scale Inj) 0 unit SQ ACHS LUC[facility]; Protocol Ketorolac Tromethamine (Toradol Inj) 15 mg IV.PUSH Q6H PRN PRN Reason: PAIN 3-5; IF UABLE TO TAKE PO Stop: 05/24/18 23:50 Last Admin: 05/20/18 04:03 Dose: 15 mg Ketorolac Tromethamine (Toradol Inj) 30 mg IV.PUSH Q6H PRN PRN Reason: PAIN 6-10;IF UNABLE TO TAKE PO Stop: 05/24/18 23:50 Morphine Sulfate (Morphine Inj) 2 mg IV.PUSH Q3H PRN PRN Reason: BREAKTHROUGH PAIN Naloxone HCl (Narcan Inj) 0.4 mg IV.PUSH UNSCH PRN PRN Reason: SEE LABEL COMMENTS Ondansetron HCl (Zofran Inj) 4 mg IV.PUSH Q6H PRN PRN Reason: NAUSEA OR VOMITING Pravastatin Sodium (Pravachol) 40 mg PO DAILY [facility] Senna/Docusate Sodium (Miley-Colace) 1 tab PO BID [facility] Sennosides (Senokot) 17.2 mg PO Q12H PRN PRN Reason: Moderate Constipation Sodium Chloride (Ns Flush) 2 ml IV.FLUSH UNSCH PRN PRN Reason: FLUSH AFTER USING IV ACCESS Last Admin: 05/20/18 04:04 Dose: 2 ml Temazepam (Restoril) 15 mg PO HS PRN PRN Reason: INSOMNIA Allergies Allergy/AdvReac Type Severity Reaction Status Date / Time No Known Allergies Allergy Uncoded 09/16/16 12:27 Home Medications Medication Instructions Recorded Confirmed Type Cymbalta PO BID 05/20/18 History aspirin [Aspir-81] 81 mg PO DAILY 05/20/18 05/20/18 History gabapentin PO BID 05/20/18 History insulin detemir U-100 [Levemir 35 units SUB-Q BID 05/20/18 05/20/18 History U-100 Insulin] metformin 1,000 mg PO BID 05/20/18 05/20/18 History simvastatin PO DAILY 05/20/18 History Exam Vital signs: Vital Signs 05/19/18 20:04 05/19/18 21:22 05/19/18 21:23 Temperature 98.6 F Pulse Rate 86 Respiratory Rate 16 18 Blood Pressure 210/89 H 187/87 H Pulse Oximetry 98 98 98 05/20/18 00:00 05/20/18 00:14 05/20/18 07:41 Temperature 97.9 F 97.5 F L Pulse Rate 72 82 69 Respiratory Rate 16 16 15 Blood Pressure 174/74 H 165/75 H 178/81 H Pulse Oximetry 98 97 Intake & Output 05/19/18 05/20/18 05/20/18 18:59 06:59 18:59 Intake Total 1999 Balance 1999 Weight 81.647 kg Intake: IV 11/18 Normal Saline Inj 1,000 ML 1999 @ 400 mls/hr IV.CONT .Q2H30M [facility] Rx#:[id number] Other: # Voids 1 - Constitutional no acute distress - Routine HEENT Exam Head: Present: normocephalic ENT: Present: mucous membranes moist - Detailed ENT Exam Dentition: Present: dental caries (Multiple missing teeth with dental caries. No obvious abscess or fluctuance) - Routine Respiratory Exam Present: CTA bilaterally. Absent: respiratory distress, wheezes, crackles - Routine Cardiovascular Exam Present: RRR, S1, S2. Absent: murmur, gallop, rubs - Routine Abdominal Exam Present: soft, normoactive bowel sounds, tenderness (Mildly tender to palpation in the epigastric region). Absent: guarding, firm, rigid, organomegaly - Routine Extremities Exam Absent: cyanosis, clubbing, edema - Routine Skin Exam Present: intact Results - Labs Result diagrams: 05/20/18 03:18 05/20/18 03:18 Abnormal lab results 05/19/18 05/19/18 05/19/18 Range/Units 20:20 21:00 21:00 RBC 5.67 H (4.00-5.30) mil/mm3 Hgb 16.8 H (11.6-15.3) gm/dL Hct 49.6 H (35.0-46.0) % [place] % (Auto) 8.1 H (0.0-8.0) % PT 9.4 L (9.8-11.6) sec APTT 21.9 L (24.3-30.1) sec VBG pH 7.48 H (7.360-7.400) VBG pCO2 34 L (44-48) mmHG VBG O2 Saturation 66 L (70-76) % Sodium (136-145) meq/L Potassium (3.5-5.1) meq/L Chloride (98-107) meq/L BUN (7-18) mg/dL Estimated GFR (>89) mL/min POC Glucose (68-110) mg/dl Random Glucose (74-106) mg/dL Calcium (8.5-10.1) mg/dL AST (15-37) U/L Troponin I (0.02-0.05) ng/mL Total Protein (6.4-8.2) g/dL Albumin (3.4-5.0) g/dL Lipase (73-393) U/L 05/19/18 05/20/18 05/20/18 Range/Units 21:00 03:18 03:18 RBC (4.00-5.30) mil/mm3 Hgb (11.6-15.3) gm/dL Hct (35.0-46.0) % [place] % (Auto) 9.8 H (0.0-8.0) % PT (9.8-11.6) sec APTT (24.3-30.1) sec VBG pH (7.360-7.400) VBG pCO2 (44-48) mmHG VBG O2 Saturation (70-76) % Sodium 132 L (136-145) meq/L Potassium 3.3 L D (3.5-5.1) meq/L Chloride 97 L (98-107) meq/L BUN 28 H 19 H (7-18) mg/dL Estimated GFR 75 L (>89) mL/min POC Glucose (68-110) mg/dl Random Glucose 425 H 186 H D (74-106) mg/dL Calcium 10.4 H 8.4 L D (8.5-10.1) mg/dL AST 13 L (15-37) U/L Troponin I Less than 0.02 L (0.02-0.05) ng/mL Total Protein 6.0 L D (6.4-8.2) g/dL Albumin 3.0 L D (3.4-5.0) g/dL Lipase 3065 H 941 H (73-393) U/L 05/20/18 05/20/18 Range/Units 03:58 07:56 RBC (4.00-5.30) mil/mm3 Hgb (11.6-15.3) gm/dL Hct (35.0-46.0) % [place] % (Auto) (0.0-8.0) % PT (9.8-11.6) sec APTT (24.3-30.1) sec VBG pH (7.360-7.400) VBG pCO2 (44-48) mmHG VBG O2 Saturation (70-76) % Sodium (136-145) meq/L Potassium (3.5-5.1) meq/L Chloride (98-107) meq/L BUN (7-18) mg/dL Estimated GFR (>89) mL/min POC Glucose 167 H 252 H (68-110) mg/dl Random Glucose (74-106) mg/dL Calcium (8.5-10.1) mg/dL AST (15-37) U/L Troponin I (0.02-0.05) ng/mL Total Protein (6.4-8.2) g/dL Albumin (3.4-5.0) g/dL Lipase (73-393) U/L Short CBC 05/19/18 05/20/18 Range/Units 21:00 03:18 WBC 7.3 6.8 (4.0-11.0) th/mm3 Hgb 16.8 H 14.9 (11.6-15.3) gm/dL Hct 49.6 H 43.6 (35.0-46.0) % Plt Count 278 237 (150-450) th/mm3 BMP 05/19/18 05/20/18 21:00 03:18 Sodium 132 L 140 Potassium 4.1 3.3 L D Chloride 97 L 106 D Carbon Dioxide 22.7 23.6 BUN 28 H 19 H Creatinine 0.78 0.53 Calcium 10.4 H 8.4 L D Cardiac Enzymes 05/19/18 Range/Units 21:00 Total Creatine Kinase 58 (26-192) U/L Troponin I Less than 0.02 L (0.02-0.05) ng/mL Liver Function 05/19/18 05/20/18 Range/Units 21:00 03:18 Total Bilirubin 0.6 0.4 (0.2-1.0) mg/dL AST 17 13 L (15-37) U/L ALT 27 23 (10-53) U/L Alkaline Phosphatase 112 81 (45-117) U/L Albumin 3.6 3.0 L D (3.4-5.0) g/dL - Imaging Impressions Chest X-Ray 05/19/18 20:42 CONCLUSION: Negative examination. Abdomen/Pelvis CT 05/20/18 00:00 CONCLUSION: 1. Negative CT abdomen/pelvis with contrast. Caprini VTE Risk Assessment Caprini VTE Risk Assessment: Moderate/High Risk (score >= 2) Caprini Risk Assessment Model: Point Value = 1 Point Value = 2 Point Value = 3 Point Value = 5 Age 41-60 Minor surgery BMI > 25 kg/m2 Swollen legs Varicose veins or History of unexplained or recurrent spontaneous Oral contraceptives or hormone replacement Sepsis (< 1 month) Serious lung disease, including pneumonia (< 1 month) Abnormal pulmonary function Acute myocardial infarction Congestive heart failure (< 1 month) History of inflammatory bowel disease Medical patient at bed rest Age 61-74 Arthroscopic surgery Major open surgery (> 45 min) Laparoscopic surgery (> 45 min) Malignancy Confined to bed (> 72 hours) Immobilizing plaster cast Central venous access Age >= 75 History of VTE Family history of VTE Factor V Leiden Prothrombin [id number] Lupus anticoagulant Anticardiolipin antibodies Elevated serum homocysteine Heparin-induced thrombocytopenia Other congenital or acquired thrombophilia Stroke (< 1 month) Elective arthroplasty Hip, pelvis, or leg fracture Acute spinal cord injury (< 1 month) Prophylaxis Regimen: Total Risk Factor Score Risk Level Prophylaxis Regimen 0-1 Low Early ambulation 2 Moderate Order ONE of the following: *Sequential Compression Device (SCD) *Heparin 5000 units SQ BID 3-4 Higher Order ONE of the following medications: *Heparin 5000 units SQ TID *Enoxaparin/Lovenox 40 mg SQ daily (WT < 150 kg, CrCl > 30 mL/min) *Enoxaparin/Lovenox 30 mg SQ daily (WT < 150 kg, CrCl > 10-29 mL/min) *Enoxaparin/Lovenox 30 mg SQ BID (WT < 150 kg, CrCl > 30 mL/min) AND/OR *Sequential Compression Device (SCD) 5 or more Highest Order ONE of the following medications: *Heparin 5000 units SQ TID (Preferred with Epidurals) *Enoxaparin/Lovenox 40 mg SQ daily (WT < 150 kg, CrCl > 30 mL/min) *Enoxaparin/Lovenox 30 mg SQ daily (WT < 150 kg, CrCl > 10-29 mL/min) *Enoxaparin/Lovenox 30 mg SQ BID (WT < 150 kg, CrCl > 30 mL/min) AND *Sequential Compression Device (SCD) Assessment and Plan - Assessment (1) Hyperglycemia Code(s): R73.9 - Hyperglycemia, unspecified Status: Acute Plan: Patient hyperglycemic on arrival at 425 and received 10 units sliding scale insulin -Blood sugars better controlled with blood sugars 167 and 252 recently -Recent hemoglobin A1c in 02/2018 was 12.8% Restart Levemir at 35 units twice daily Continue moderate sliding scale and begin diabetic diet with 1800 patricia Continue to hold home metformin and Farxiga Review insulin use tomorrow and will likely begin basal/bolus insulin regimen (2) Acute pancreatitis Code(s): K85.90 - Acute pancreatitis without necrosis or infection, unspecified Status: Acute Plan: Lipase of 3065 on arrival with mild epigastric abdominal tenderness -Patient was held n.p.o. overnight and received aggressive IV hydration -Patient with only mild abdominal tenderness today and lipase decreased to 941 CT of the abdomen/pelvis with contrast showing no acute process or active inflammation Begin diabetic diet today and continue pain control with Toradol -Morphine ordered for breakthrough pain (3) Hypertension Code(s): I10 - Essential (primary) hypertension Status: Chronic Plan: Blood pressure elevated likely secondary to pain -Patient is on diltiazem and furosemide as an outpatient -Furosemide held as this can cause pancreatitis Would likely benefit from MEEK inhibitor, we will begin lisinopril 10 mg p.o. daily Restart home diltiazem (4) Mouth pain Code(s): K13.79 - Other lesions of oral mucosa Status: Acute Plan: No obvious abscess or infection seen on inspection -Started on amoxicillin 500 mg every 8 hours, will complete course of antibiotic treatment (5) Hyperlipidemia Code(s): E78.5 - Hyperlipidemia, unspecified Status: Chronic Plan: Continue home pravastatin -Recent lipid panel from 02/2018 reviewed H&P: Quality - VTE Deep Vein Thrombosis/Pulmonary Embolism Present on Admission: No (3) Hypertension Qualifiers: Hypertension type: essential hypertension Qualified Code(s): I10 - Essential (primary) hypertension (5) Hyperlipidemia Qualifiers: Hyperlipidemia type: unspecified Qualified Code(s): E78.5 - Hyperlipidemia, unspecified
[2018-05-20] MEDS: Lisinopril 10 MG Tablet PO SCH (10:28)
[2018-05-20] MEDS: KCL 20 mEq/NACL 0.45% Inj 1,000 ML IV.CONT SCH ×3 (10:30→23:03)
[2018-05-20 15:35] LABS: Bacteria,Urine Rare /hpf; Bilirubin,Urine Negative (Negative); Clarity,Urine Clear (Clear); Color,Urine Yellow (Yellw/Straw); Glucose,Urine (UA) 500 or Greater mg/dL (Negative); Leukocyte Esterase,Urine Moderate (Negative); Nitrite,Urine Negative (Negative); Specific Gravity,Urine 1.017 (1.002-1.035); Squamous Epithelial Cell,Urine 2 /hpf (0-5)
--- NOTE | 2018-05-20 21:56 | ECG ---
Date Performed: 05/19/2018 Time Performed: 22:12:19 PTAGE: 63 years EKG: Sinus rhythm RIGHT BUNDLE BRANCH BLOCK ABNORMAL ECG PREVIOUS TRACING : 12/19/2016 19.47 Since the previous tracing, no significant change noted DOCTOR: Carlos Cooper Interpretating Date/Time 05/20/2018 21:56:18
[2018-05-21] MEDS: Insulin Detemir Inj 1,000 UNIT/10 ML Vial SQ SCH ×3 (00:41→20:59)
[2018-05-21] MEDS: Senna/Docusate Sodium 8.6/50 MG Tablet PO SCH ×3 (00:43→20:53)
[2018-05-21] MEDS: KCL 20 mEq/NACL 0.45% Inj 1,000 ML IV.CONT SCH ×5 (04:09→23:14)
[2018-05-21 04:46] LABS: Baso % (Auto) 0.5 % (0.0-2.0); Eos # (Auto) 0.1 th/mm3 (0.0-0.4); Eos % (Auto) 2.3 % (0.0-4.0); Hematocrit 43.4 % (35.0-46.0); Hemoglobin 14.7 gm/dL (11.6-15.3); Lymph # (Auto) 2.7 th/mm3 (1.0-4.8); Lymph % (Auto) 44.7 % (9.0-44.0); Mean Corpuscular HGB Conc 33.9 % (32.0-36.0); Mean Corpuscular Hemoglobin 29.8 pg (27.0-34.0); Mean Platelet Volume 8.1 fL (7.0-11.0); Mono # (Auto) 0.5 th/mm3 (0.0-0.9); Mono % (Auto) 7.8 % (0.0-8.0); Neut # (Auto) 2.7 th/mm3 (1.8-7.7); Neut % (Auto) 44.7 % (16.0-70.0); Platelet Count 242 th/mm3 (150-450); Red Blood Count 4.93 mil/mm3 (4.00-5.30); Red Cell Distribution Width 12.7 % (11.6-17.2)
[2018-05-21 05:09] LABS: Albumin 2.6 g/dL (3.4-5.0); Anion Gap 11 meq/L (5-15); Aspartate Aminotransferase 14 U/L (15-37); Blood Urea Nitrogen 12 mg/dL (7-18); Calcium 8.9 mg/dL (8.5-10.1); Carbon Dioxide 22.1 meq/L (21.0-32.0); Chloride 111 meq/L (98-107); Glomerular Filtration Rate Greater Than 89 mL/min (>89); Glucose,Random 171 mg/dL (74-106); Lipase 510 U/L (73-393); Sodium 144 meq/L (136-145)
[2018-05-21 05:11] LABS: Alanine Aminotransferase 25 U/L (10-53)
[2018-05-21 05:13] LABS: Alkaline Phosphatase 64 U/L (45-117); Total Protein 5.6 g/dL (6.4-8.2)
[2018-05-21] MEDS: Lisinopril 10 MG Tablet PO SCH (08:38)
[2018-05-21] MEDS: Gabapentin 300 MG Capsule PO SCH ×2 (08:38→20:54)
[2018-05-21] MEDS: Duloxetine 60 MG DR Capsule PO SCH ×2 (08:39→20:54)
[2018-05-21] MEDS: dilTIAZem CD 180 MG Capsule PO SCH (08:39)
[2018-05-21] MEDS: Insulin NovoLOG Aspart Correctional Sugar Inj SQ SCH ×4 (08:42→21:01)
--- NOTE | 2018-05-21 10:53 | P.PNFP ---
Subjective Interval history: Patient was seen and examined this morning. She states she feels a little bit better this morning. She does report feeling dizzy, hot, and shaky before dinnertime yesterday after receiving 19 units of regular insulin around 1:30 PM. Blood sugar at that time was 60. She received apple juice and crackers with blood sugars improved to 170 within the hour patient reports she began to feel better immediately after apple juice. <Madonna Ardon - 05/21/18 11:03> Results - Labs Result diagrams: 05/21/18 03:25 05/21/18 03:25 <Sandoval Nina - 05/21/18 17:01> Abnormal lab results 05/20/18 05/20/18 05/20/18 Range/Units 17:17 18:24 21:42 Lymph % (Auto) (9.0-44.0) % Chloride (98-107) meq/L POC Glucose 60 L 170 H 258 H (68-110) mg/dl Random Glucose (74-106) mg/dL AST (15-37) U/L Total Protein (6.4-8.2) g/dL Albumin (3.4-5.0) g/dL Lipase (73-393) U/L 05/21/18 05/21/18 05/21/18 Range/Units 03:25 03:25 12:42 Lymph % (Auto) 44.7 H (9.0-44.0) % Chloride 111 H (98-107) meq/L POC Glucose 130 H (68-110) mg/dl Random Glucose 171 H (74-106) mg/dL AST 14 L (15-37) U/L Total Protein 5.6 L (6.4-8.2) g/dL Albumin 2.6 L (3.4-5.0) g/dL Lipase 510 H (73-393) U/L Short CBC 05/21/18 Range/Units 03:25 WBC 6.0 (4.0-11.0) th/mm3 Hgb 14.7 (11.6-15.3) gm/dL Hct 43.4 (35.0-46.0) % Plt Count 242 (150-450) th/mm3 BMP 05/21/18 03:25 Sodium 144 Potassium 4.0 Chloride 111 H Carbon Dioxide 22.1 BUN 12 Creatinine 0.51 Calcium 8.9 Liver Function 05/21/18 Range/Units 03:25 Total Bilirubin 0.4 (0.2-1.0) mg/dL AST 14 L (15-37) U/L ALT 25 (10-53) U/L Alkaline Phosphatase 64 (45-117) U/L Albumin 2.6 L (3.4-5.0) g/dL <Sandoval Nina - 05/21/18 17:01> Abnormal lab results 05/20/18 05/20/18 05/20/18 Range/Units 12:07 15:04 17:17 Lymph % (Auto) (9.0-44.0) % Chloride (98-107) meq/L POC Glucose 262 H 60 L (68-110) mg/dl Random Glucose (74-106) mg/dL AST (15-37) U/L Total Protein (6.4-8.2) g/dL Albumin (3.4-5.0) g/dL Lipase (73-393) U/L Urine Protein 30 H (Neg-Trace) mg/dL Ur Leukocyte Esterase Moderate H (Negative) Urine WBC 13 H (0-5) /hpf Urine Bacteria Rare H (None) /hpf 05/20/18 05/20/18 05/21/18 Range/Units 18:24 21:42 03:25 Lymph % (Auto) 44.7 H (9.0-44.0) % Chloride (98-107) meq/L POC Glucose 170 H 258 H (68-110) mg/dl Random Glucose (74-106) mg/dL AST (15-37) U/L Total Protein (6.4-8.2) g/dL Albumin (3.4-5.0) g/dL Lipase (73-393) U/L Urine Protein (Neg-Trace) mg/dL Ur Leukocyte Esterase (Negative) Urine WBC (0-5) /hpf Urine Bacteria (None) /hpf 05/21/18 Range/Units 03:25 Lymph % (Auto) (9.0-44.0) % Chloride 111 H (98-107) meq/L POC Glucose (68-110) mg/dl Random Glucose 171 H (74-106) mg/dL AST 14 L (15-37) U/L Total Protein 5.6 L (6.4-8.2) g/dL Albumin 2.6 L (3.4-5.0) g/dL Lipase 510 H (73-393) U/L Urine Protein (Neg-Trace) mg/dL Ur Leukocyte Esterase (Negative) Urine WBC (0-5) /hpf Urine Bacteria (None) /hpf Short CBC 05/21/18 Range/Units 03:25 WBC 6.0 (4.0-11.0) th/mm3 Hgb 14.7 (11.6-15.3) gm/dL Hct 43.4 (35.0-46.0) % Plt Count 242 (150-450) th/mm3 BMP 05/21/18 03:25 Sodium 144 Potassium 4.0 Chloride 111 H Carbon Dioxide 22.1 BUN 12 Creatinine 0.51 Calcium 8.9 Liver Function 05/21/18 Range/Units 03:25 Total Bilirubin 0.4 (0.2-1.0) mg/dL AST 14 L (15-37) U/L ALT 25 (10-53) U/L Alkaline Phosphatase 64 (45-117) U/L Albumin 2.6 L (3.4-5.0) g/dL Urine 05/20/18 Range/Units 15:04 Urine Color Yellow (Yellw/Straw) Urine Clarity Clear (Clear) Urine pH 6.0 (5.0-8.5) Ur Specific [place] 1.017 (1.002-1.035) Urine Protein 30 H (Neg-Trace) mg/dL Urine Glucose (UA) 500 or greater (Negative) mg/dL <Madonna Ardon - 05/21/18 10:53> - Imaging ITS Impressions Chest X-Ray 05/19/18 20:42 CONCLUSION: Negative examination. Abdomen/Pelvis CT 05/20/18 00:00 CONCLUSION: 1. Negative CT abdomen/pelvis with contrast. <Madonna Ardon - 05/21/18 11:03> Physical Exam Vital signs: Vital Signs 05/20/18 20:30 05/20/18 20:34 05/21/18 00:30 Temperature 98.1 F 98.1 F Pulse Rate 70 73 66 Respiratory Rate 16 17 Blood Pressure 143/70 H 136/65 Pulse Oximetry 96 96 05/21/18 03:40 05/21/18 08:13 05/21/18 09:48 Temperature 98.1 F 97.4 F L 97.4 F L Pulse Rate 64 65 65 Respiratory Rate 17 16 Blood Pressure 131/60 141/64 H 141/64 H Pulse Oximetry 96 05/21/18 12:00 Temperature 98.4 F Pulse Rate 76 Respiratory Rate 18 Blood Pressure 139/75 Pulse Oximetry Intake & Output 05/20/18 05/21/18 05/21/18 18:59 06:59 18:59 Intake Total 2015 1000 / 1000 Balance 2015 1000 / 1000 Intake: IV 2015 1000 / 1000 Potassium Chlor 20 mEq/NACL 0. 915 / 915 1999 1000 / 1000 45% Inj 1,000 ML @ 200 mls/hr IV.CONT .Q5H [facility] Rx#:[id number] 11/18 Normal Saline Inj 1,000 ML 1101 / 1101 @ 200 mls/hr IV.CONT .Q5H [facility] Rx#:[id number] Other: # Voids 1 Date of Last Bowel Movement 05/19/18 <Sandoval Nina - 05/21/18 17:01> Vital Signs 05/20/18 13:35 05/20/18 16:00 05/20/18 20:30 Temperature 98.1 F 98.0 F Pulse Rate 69 69 70 Respiratory Rate 18 21 Blood Pressure 133/65 131/63 Pulse Oximetry 98 95 05/20/18 20:34 05/21/18 00:30 05/21/18 03:40 Temperature 98.1 F 98.1 F 98.1 F Pulse Rate 73 66 64 Respiratory Rate 16 17 17 Blood Pressure 143/70 H 136/65 131/60 Pulse Oximetry 96 96 96 05/21/18 08:13 05/21/18 09:48 Temperature 97.4 F L 97.4 F L Pulse Rate 65 65 Respiratory Rate 16 Blood Pressure 141/64 H 141/64 H Pulse Oximetry Intake & Output 05/20/18 05/21/18 05/21/18 18:59 06:59 18:59 Intake Total 2015 1000 / 1000 Balance 2015 1000 / 1000 Intake: IV 2015 1000 / 1000 Potassium Chlor 20 mEq/NACL 0. 915 / 915 1999 1000 / 1000 45% Inj 1,000 ML @ 200 mls/hr IV.CONT .Q5H [facility] Rx#:[id number] / Normal Saline Inj 1,000 ML 1101 / 1101 @ 200 mls/hr IV.CONT .Q5H [facility] Rx#:[id number] Other: # Voids 1 Date of Last Bowel Movement 05/19/18 <Madonna Ardon - 05/21/18 10:53> Narrative: GENERAL: Well-appearing female in no apparent distress. She is sitting up in bed. SKIN: Warm and dry. No rashes or ecchymoses. HEAD: Atraumatic. Normocephalic. EYES: Pupils equal and round. No scleral icterus. No injection or drainage. ENT: No nasal bleeding or discharge. Mucous membranes pink and moist. Dental caries (Multiple missing teeth with dental caries. No obvious abscess or fluctuance). NECK: Trachea midline. No JVD. CARDIOVASCULAR: Regular rate and rhythm with no murmurs. RESPIRATORY: No accessory muscle use. Clear to auscultation. Breath sounds equal bilaterally. GASTROINTESTINAL: Abdomen soft, nondistended. Hepatic and splenic margins not palpable. Mildly tender to palpation in the epigastric region. Absent: guarding , firm, rigid, organomegaly MUSCULOSKELETAL: Extremities without clubbing, cyanosis, or edema. No obvious deformities. NEUROLOGICAL: Awake and alert. No obvious cranial nerve deficits. Motor grossly within normal limits. Five out of 5 muscle strength in the arms and legs. Normal speech. PSYCHIATRIC: Appropriate mood and affect; insight and judgment normal. <Madonna Ardon - 05/21/18 11:03> Assessment and Plan - Assessment (1) Hyperglycemia Code(s): R73.9 - Hyperglycemia, unspecified Status: Acute (2) Hypoglycemia Code(s): E16.2 - Hypoglycemia, unspecified Status: Resolved (3) Acute pancreatitis Code(s): K85.90 - Acute pancreatitis without necrosis or infection, unspecified Status: Acute (4) Hypertension Code(s): I10 - Essential (primary) hypertension Status: Chronic (5) Mouth pain Code(s): K13.79 - Other lesions of oral mucosa Status: Acute (6) Hyperlipidemia Code(s): E78.5 - Hyperlipidemia, unspecified Status: Chronic <Sandoval Nina - 05/21/18 17:01> (1) Hyperglycemia Code(s): R73.9 - Hyperglycemia, unspecified Status: Acute Plan: Patient with hypoglycemic episode yesterday evening with resolution per protocol interventions. Patient's glucose levels have been pretty labile over the last 24 hours this will change sliding scale from medium dose protocol to custom as follows: * Glucose less than 120: No supplemental NovoLog * Glucose 136444: 4 units * glucose 363395: 6 units * Glucose 608569: 8 units * Glucose 250-299: 10 units * Glucose 335432: 12 units * Glucose >350: give 12 units, then call Impression/Hospital Course: Patient hyperglycemic on arrival 05/19/2018 with blood glucose at 425 and received 10 units sliding scale insulin -Blood sugars better controlled but with hypoglycemic sewed on 05/20 warranting reduction of supplemental NovoLog -She received a total of 57 units of NovoLog on 05/21, which is high dose and likely contributory to her hypoglycemic episode. -Recent hemoglobin A1c in 02/2018 was 12.8% -We will continue her home Levemir 35 units twice per day, encourage patient to eat her meals and adjust insulin with above sliding scale. -Continue 1800 kcal ADA diet -Continue to hold home metformin and Farxiga -Review insulin over next 24 hour and will likely begin basal/bolus insulin regimen at that time (2) Hypoglycemia Code(s): E16.2 - Hypoglycemia, unspecified Status: Resolved Plan: Plan as noted above (3) Acute pancreatitis Code(s): K85.90 - Acute pancreatitis without necrosis or infection, unspecified Status: Acute Plan: Lipase improved to 510 on labs this morning, continue to monitor and continue half normal saline at 200 cc/h with potassium 20 mg/L Impression/Hospital Course: Patient presented with lipase of 3065 on arrival with mild epigastric abdominal tenderness -Patient was held n.p.o. overnight and received aggressive IV hydration, reinitiated ADA diet within 12 hours of arrival -No abdominal pain on evaluation 05/21 -CT of the abdomen/pelvis with contrast showing no acute process or active inflammation on 05/20 -Continue pain control with Toradol as needed with Morphine ordered for breakthrough pain (4) Hypertension Code(s): I10 - Essential (primary) hypertension Status: Chronic Plan: Plan: Continue home dose of Cardizem. Lisinopril 10 mg per day initiated 05/21 with goal BP obtained Impression: Blood pressure elevated on admission likely secondary to pain and delayed administration of home medications. -Patient is on diltiazem and furosemide as an outpatient -Furosemide held as this can cause pancreatitis (5) Mouth pain Code(s): K13.79 - Other lesions of oral mucosa Status: Acute Plan: Patient does not report mouth pain today. No obvious abscess or infection seen on inspection -Continue amoxicillin 500 mg every 8 hours, will complete course of antibiotic treatment (6) Hyperlipidemia Code(s): E78.5 - Hyperlipidemia, unspecified Status: Chronic Plan: Continue home pravastatin -Recent lipid panel from 02/2018 reviewed and are overall within normal <Madonna Ardon - 05/21/18 12:18> - Assessment and Plan 63-year-old female with past history of diabetes, hyperlipidemia, GERD who presented via PCP recommendation for symptomatic hyperglycemia. Found to have an elevated lipase into the 3000s in the ED, epigastric tenderness on deep palpation. Likely pancreatitis, no known source at time of admission and enzymes improving. Continue management of labile blood sugars and anticipate discharge in 1-2 days to home. <Madonna Ardon - 05/21/18 12:25> - Attending Attestation Pt. examined independently and case discussed with resident physician I have read the above note and agree with the assessment/plan as discussed with me I was involved in all medical decision making for this patient Sandoval Nina MD <Sandoval Nina - 05/21/18 17:01> <Madonna Ardon - Last Filed: 05/21/18 12:18> (4) Hypertension Qualifiers: Hypertension type: essential hypertension Qualified Code(s): I10 - Essential (primary) hypertension (6) Hyperlipidemia Qualifiers: Hyperlipidemia type: unspecified Qualified Code(s): E78.5 - Hyperlipidemia, unspecified <Sandoval Nina - Last Filed: 05/21/18 17:01> (4) Hypertension Qualifiers: Hypertension type: essential hypertension Qualified Code(s): I10 - Essential (primary) hypertension (6) Hyperlipidemia Qualifiers: Hyperlipidemia type: unspecified Qualified Code(s): E78.5 - Hyperlipidemia, unspecified <Madonna Ardon - Last Filed: 05/21/18 12:18> (4) Hypertension Qualifiers: Hypertension type: essential hypertension Qualified Code(s): I10 - Essential (primary) hypertension (6) Hyperlipidemia Qualifiers: Hyperlipidemia type: unspecified Qualified Code(s): E78.5 - Hyperlipidemia, unspecified <Sandoval Nina - Last Filed: 05/21/18 17:01> (4) Hypertension Qualifiers: Hypertension type: essential hypertension Qualified Code(s): I10 - Essential (primary) hypertension (6) Hyperlipidemia Qualifiers: Hyperlipidemia type: unspecified Qualified Code(s): E78.5 - Hyperlipidemia, unspecified
[2018-05-21] MEDS: Ketorolac Inj 30 MG/ML (IVP) Vial IV.PUSH PRN (16:35)
[2018-05-22] MEDS: Enoxaparin Inj 40 MG/0.4 ML Syringe SQ SCH (00:56)
[2018-05-22] MEDS: KCL 20 mEq/NACL 0.45% Inj 1,000 ML IV.CONT SCH ×2 (01:00→06:34)
--- NOTE | 2018-05-22 08:27 | P.PNFP ---
Subjective Interval history: Patient was seen and examined this morning. She states she feels almost back to baseline. She denies new sx and notes abdominal pain is minimal. No fevers, chills, nausea, vomiting, tremors, or sweating episodes reported. She is eating light meals per her report and notes she sometimes skips meals at home. <Madonna Ardon - 05/22/18 10:02> Results - Labs Result diagrams: 05/21/18 03:25 05/21/18 03:25 <Sandoval Nina - 05/22/18 14:17> Abnormal lab results 05/21/18 05/21/18 05/22/18 Range/Units 17:39 20:53 01:05 POC Glucose 149 H 165 H 172 H (68-110) mg/dl <Sandoval Nina - 05/22/18 14:17> Abnormal lab results 05/21/18 05/21/18 05/21/18 Range/Units 12:42 17:39 20:53 POC Glucose 130 H 149 H 165 H (68-110) mg/dl 05/22/18 Range/Units 01:05 POC Glucose 172 H (68-110) mg/dl <Madonna Ardon - 05/22/18 08:27> - Imaging ITS Impressions Chest X-Ray 05/19/18 20:42 CONCLUSION: Negative examination. Abdomen/Pelvis CT 05/20/18 00:00 CONCLUSION: 1. Negative CT abdomen/pelvis with contrast. <Madonna Ardon - 05/22/18 10:02> Physical Exam Vital signs: Vital Signs 05/21/18 16:45 05/21/18 19:32 05/21/18 19:52 Temperature 97.7 F 95.7 F L Pulse Rate 73 77 Respiratory Rate 16 16 18 Blood Pressure 142/68 H 162/88 H Pulse Oximetry 98 05/21/18 22:05 05/21/18 22:08 05/21/18 23:05 Temperature 98 F Pulse Rate 63 Respiratory Rate 16 Blood Pressure 137/71 Pulse Oximetry 99 97 97 05/22/18 04:00 05/22/18 07:51 05/22/18 09:00 Temperature 96.3 F L 97.7 F Pulse Rate 70 62 90 Respiratory Rate 16 20 Blood Pressure 131/62 128/62 Pulse Oximetry 97 97 05/22/18 12:00 Temperature 98.3 F Pulse Rate 70 Respiratory Rate 18 Blood Pressure 137/83 Pulse Oximetry 97 Intake & Output 05/21/18 05/22/18 05/22/18 18:59 06:59 18:59 Intake Total 2359 Balance 2359 Intake: IV 1999 Potassium Chlor 20 mEq/NACL 0. 1999 45% Inj 1,000 ML @ 200 mls/hr IV.CONT .Q5H LUCY Rx#:[id number] Oral 360 360 Other: Date of Last Bowel Movement 05/19/18 <Sandoval Nina - 05/22/18 14:17> Vital Signs 05/21/18 09:48 05/21/18 12:00 05/21/18 16:45 Temperature 97.4 F L 98.4 F 97.7 F Pulse Rate 65 76 73 Respiratory Rate 16 18 16 Blood Pressure 141/64 H 139/75 142/68 H Pulse Oximetry 05/21/18 19:32 05/21/18 19:52 05/21/18 22:05 Temperature 95.7 F L Pulse Rate 77 Respiratory Rate 16 18 Blood Pressure 162/88 H Pulse Oximetry 98 99 05/21/18 22:08 05/21/18 23:05 05/22/18 04:00 Temperature 98 F 96.3 F L Pulse Rate 63 70 Respiratory Rate 16 16 Blood Pressure 137/71 131/62 Pulse Oximetry 97 97 97 05/22/18 07:51 Temperature 97.7 F Pulse Rate 62 Respiratory Rate 20 Blood Pressure 128/62 Pulse Oximetry 97 Intake & Output 05/21/18 05/22/18 05/22/18 18:59 06:59 18:59 Intake Total 2359 Balance 2359 Intake: IV 1999 Potassium Chlor 20 mEq/NACL 0. 1999 45% Inj 1,000 ML @ 200 mls/hr IV.CONT .Q5H LUCY Rx#:[id number] Oral 360 / 360 Other: Date of Last Bowel Movement 05/19/18 <Madonna Ardon - 05/22/18 08:27> Narrative: GENERAL: Well-appearing female in no apparent distress. She is sitting up in bed. SKIN: Warm and dry. No rashes or ecchymoses. HEAD: Atraumatic. Normocephalic. EYES: Pupils equal and round. No scleral icterus. No injection or drainage. ENT: No nasal bleeding or discharge. Mucous membranes pink and moist. Dental caries (Multiple missing teeth with dental caries. No obvious abscess or fluctuance). NECK: Trachea midline. No JVD. CARDIOVASCULAR: Regular rate and rhythm with no murmurs. RESPIRATORY: No accessory muscle use. Clear to auscultation. Breath sounds equal bilaterally. GASTROINTESTINAL: Abdomen soft, nondistended. Hepatic and splenic margins not palpable. Mildly tender to palpation in the epigastric region. Absent: guarding , firm, rigid, organomegaly MUSCULOSKELETAL: Extremities without clubbing, cyanosis, or edema. No obvious deformities. NEUROLOGICAL: Awake and alert. No obvious cranial nerve deficits. Motor grossly within normal limits. Five out of 5 muscle strength in the arms and legs. Normal speech. PSYCHIATRIC: Appropriate mood and affect; insight and judgment normal. <Madonna Ardon - 05/22/18 10:02> Assessment and Plan - Assessment (1) Diabetes type 2, uncontrolled Code(s): E11.65 - Type 2 diabetes mellitus with hyperglycemia Status: Acute (2) Hypoglycemia Code(s): E16.2 - Hypoglycemia, unspecified Status: Resolved Onset Date: ~03/04 (3) Acute pancreatitis Code(s): K85.90 - Acute pancreatitis without necrosis or infection, unspecified Status: Acute (4) Hypertension Code(s): I10 - Essential (primary) hypertension Status: Chronic (5) Mouth pain Code(s): K13.79 - Other lesions of oral mucosa Status: Resolved (6) Hyperlipidemia Code(s): E78.5 - Hyperlipidemia, unspecified Status: Chronic <Sandoval Nina - 05/22/18 14:17> (1) Diabetes type 2, uncontrolled Code(s): E11.65 - Type 2 diabetes mellitus with hyperglycemia Status: Acute Plan: Continue current management this morning. If no significant glucose requirements , will discharge patient home with Levemir 35 units SQ BID (which was her home dose) and genetic counselor to to use the below-noted pre-prandial sliding scale for coverage. She will restart home doses of metformin and Farxiga at discharge. Hospital Course: Patient hyperglycemic on arrival 05/19/2018 with blood glucose at 425 and received 10 units sliding scale insulin -Blood sugars better controlled but with hypoglycemic episode on 05/20 warranting reduction of supplemental NovoLog -She received a total of 57 units of NovoLog on 05/20, which is high dose and likely contributory to her hypoglycemic episode. -Recent hemoglobin A1c in 02/2018 was 12.8% -Continue her home Levemir 35 units twice per day, encourage patient to eat her meals and adjust insulin with above sliding scale. -Continue 1800 kcal ADA diet -Hold home metformin and Farxiga -Review insulin over hospitalization -Given patient skips meals, a basal/bolus regimen would have to be used carefully given risk of hypoglycemia Patient did have hypoglycemic episode 05/20 (evening) with resolution per protocol interventions. She notable received total of 57 units of insulin 05/20. Patient's glucose levels have been well controlled since 05/21 with glucose 130s- 170s and fasting 103. Continue current sliding scale Novolog as follows: * Glucose less than 120: No supplemental NovoLog * Glucose 337758: 4 units * glucose 850229: 6 units * Glucose 176077: 8 units * Glucose 250-299: 10 units * Glucose 561902: 12 units * Glucose >350: give 12 units, then call MD (2) Hypoglycemia Code(s): E16.2 - Hypoglycemia, unspecified Status: Resolved Onset Date: ~03/04 Plan: Plan as noted above (3) Acute pancreatitis Code(s): K85.90 - Acute pancreatitis without necrosis or infection, unspecified Status: Acute Plan: Lipase improved to 510 on labs 05/21, will await labs this morning and anticipate normalization. If wnl, will discontinue IVF. Patient asymptomatic on 05/22. Unclear etiology given workup negative, though suspect related to poorly controlled glucose levels. Impression/Hospital Course: Patient presented with lipase of 3065 on arrival with mild epigastric abdominal tenderness -Patient was held n.p.o. initially and received aggressive IV hydration, reinitiated ADA diet within 12 hours of arrival -No abdominal pain on evaluation -CT of the abdomen/pelvis with contrast showing no acute process or active inflammation on 05/20 -Continue pain control with Toradol as needed with Morphine ordered for breakthrough pain. At discharge pt may take acetaminophen or NSAID as needed (4) Hypertension Code(s): I10 - Essential (primary) hypertension Status: Chronic Plan: Plan: Continue home dose of Cardizem. Lisinopril 10 mg per day initiated 05/21 with goal BP obtained, will continue at discharge. Will continue to recommend holding of furosemide at discharge. Impression: Blood pressure elevated on admission likely secondary to pain and delayed administration of home medications. -Patient is on diltiazem and furosemide as an outpatient -Furosemide held as this can cause pancreatitis (5) Mouth pain Code(s): K13.79 - Other lesions of oral mucosa Status: Resolved Plan: Patient does not report mouth pain today. No obvious abscess or infection seen on inspection however symptoms are chronic and pt is awaiting dental procedure ( pending glucose control) -Continue amoxicillin 500 mg every 8 hours, will complete 10 day course of antibiotic treatment -Recommending probiotics while on antibiotics (6) Hyperlipidemia Code(s): E78.5 - Hyperlipidemia, unspecified Status: Chronic Plan: Continue home pravastatin -Recent lipid panel from 02/2018 reviewed and are overall within normal <Madnona Ardon - 05/22/18 11:11> - Assessment and Plan 63-year-old female with past history of diabetes, hyperlipidemia, GERD who presented via PCP recommendation for symptomatic hyperglycemia. Found to have an elevated lipase into the 3000s in the ED, epigastric tenderness on deep palpation. Likely pancreatitis, no known source at time of admission and enzymes improving. Discharge to home pending glucose control and resolution of pancreatitis. <Madonna Ardon - 05/22/18 10:18> - Attending Attestation Patient examined and case discussed with resident physician I have read the above note and agree with the assessment/plan as discussed with me I was involved in all medical decision making for this patient Sandoval Nina MD <Sandoval Nina - 05/22/18 14:17> <Madonna Ardon - Last Filed: 05/22/18 11:11> (1) Diabetes type 2, uncontrolled Qualifiers: Diabetes mellitus long winder tender insulin use: with intermediate use Diabetes mellitus complication status: with hypoglycemia Diabetes mellitus complication detail: without coma Qualified Code(s): E11.649 - Type 2 diabetes mellitus with hypoglycemia without coma; Z79.4 - ad terminal makeup operator (current) use of insulin (3) Acute pancreatitis Qualifiers: Pancreatitis type: idiopathic Acute pancreatitis complication: no infection or necrosis Qualified Code(s): K85.00 - Idiopathic acute pancreatitis without necrosis or infection (4) Hypertension Qualifiers: Hypertension type: essential hypertension Qualified Code(s): I10 - Essential (primary) hypertension (6) Hyperlipidemia Qualifiers: Hyperlipidemia type: unspecified Qualified Code(s): E78.5 - Hyperlipidemia, unspecified <Sandoval Nina - Last Filed: 05/22/18 14:17> (1) Diabetes type 2, uncontrolled Qualifiers: Diabetes mellitus intermediate insulin use: with intermediate use Diabetes mellitus complication status: with hypoglycemia Diabetes mellitus complication detail: without coma Qualified Code(s): E11.649 - Type 2 diabetes mellitus with hypoglycemia without coma; Z79.4 - ad terminal makeup operator (current) use of insulin (3) Acute pancreatitis Qualifiers: Pancreatitis type: idiopathic Acute pancreatitis complication: no infection or necrosis Qualified Code(s): K85.00 - Idiopathic acute pancreatitis without necrosis or infection (4) Hypertension Qualifiers: Hypertension type: essential hypertension Qualified Code(s): I10 - Essential (primary) hypertension (6) Hyperlipidemia Qualifiers: Hyperlipidemia type: unspecified Qualified Code(s): E78.5 - Hyperlipidemia, unspecified <Madonna Ardon - Last Filed: 05/22/18 11:11> (1) Diabetes type 2, uncontrolled Qualifiers: Diabetes mellitus intermediate insulin use: with intermediate use Diabetes mellitus complication status: with hypoglycemia Diabetes mellitus complication detail: without coma Qualified Code(s): E11.649 - Type 2 diabetes mellitus with hypoglycemia without coma; Z79.4 - ad terminal makeup operator (current) use of insulin (3) Acute pancreatitis Qualifiers: Pancreatitis type: idiopathic Acute pancreatitis complication: no infection or necrosis Qualified Code(s): K85.00 - Idiopathic acute pancreatitis without necrosis or infection (4) Hypertension Qualifiers: Hypertension type: essential hypertension Qualified Code(s): I10 - Essential (primary) hypertension (6) Hyperlipidemia Qualifiers: Hyperlipidemia type: unspecified Qualified Code(s): E78.5 - Hyperlipidemia, unspecified <Sandoval Nina - Last Filed: 05/22/18 14:17> (1) Diabetes type 2, uncontrolled Qualifiers: Diabetes mellitus intermediate insulin use: with intermediate use Diabetes mellitus complication status: with hypoglycemia Diabetes mellitus complication detail: without coma Qualified Code(s): E11.649 - Type 2 diabetes mellitus with hypoglycemia without coma; Z79.4 - jail (current) use of insulin (3) Acute pancreatitis Qualifiers: Pancreatitis type: idiopathic Acute pancreatitis complication: no infection or necrosis Qualified Code(s): K85.00 - Idiopathic acute pancreatitis without necrosis or infection (4) Hypertension Qualifiers: Hypertension type: essential hypertension Qualified Code(s): I10 - Essential (primary) hypertension (6) Hyperlipidemia Qualifiers: Hyperlipidemia type: unspecified Qualified Code(s): E78.5 - Hyperlipidemia, unspecified
[2018-05-22] MEDS: Duloxetine 60 MG DR Capsule PO SCH (09:13)
[2018-05-22] MEDS: Lisinopril 10 MG Tablet PO SCH (09:13)
[2018-05-22] MEDS: Gabapentin 300 MG Capsule PO SCH (09:13)
[2018-05-22] MEDS: Insulin Detemir Inj 1,000 UNIT/10 ML Vial SQ SCH (09:14)
[2018-05-22] MEDS: dilTIAZem CD 180 MG Capsule PO SCH (09:14)
[2018-05-22] MEDS: Senna/Docusate Sodium 8.6/50 MG Tablet PO SCH (09:14)
[2018-05-22] MEDS: Insulin NovoLOG Aspart Correctional Sugar Inj SQ SCH (09:19)
[2018-05-22] MEDS: Ketorolac Inj 30 MG/ML (IVP) Vial IV.PUSH PRN (15:07)
--- NOTE | 2018-05-22 15:18 | P.DS ---
Date of admission: 05/19/18 22:08 Primary care physician: Samm Gonzalez MD, R2 Attending physician on discharge: Sandoval Nina Anticipated date of discharge: 05/22/18 Brief History from admission: 63-year-old female with history of diabetes who was sent in by her PCP for hyperglycemia. Her blood sugar at home was 484 prior to coming in, and initial check in the emergency department was 425. She has been working with her PCP recently for hyperglycemia with increasing her insulin at home. Her current insulin at home is 35 units of Levemir twice daily, which has been increased from 50 units nightly. She has been on this new regimen for 5 days with continually elevated blood sugars. She also endorses polyuria and polydipsia and occasional mild epigastric abdominal pain. She denies any fevers or chills , she denies any lightheadedness or dizziness, she denies any decrease in appetite. The patient also reports she has an infection of the top left area of her mouth. She has been attempting to go to a dentist to have this fixed. She reports that the dentist has refused to do so at this time due to her uncontrolled blood sugars. Her PCP is following this up and had ordered Augmentin for her to take, however she had not received this medication from her mail order pharmacy and has not taken any antibiotics prior to admission. She reports she had a Toradol shot which worked very well for that her mouth pain. Denies redness, swelling of her face, blurry vision, double vision, sour taste in mouth, pus in mouth. DS: Diagnosis - Discharge Diagnosis (1) Diabetes type 2, uncontrolled Status: Acute (2) Hypoglycemia Status: Resolved (3) Acute pancreatitis Status: Acute (4) Hypertension Status: Chronic (5) Mouth pain Status: Resolved (6) Hyperlipidemia Status: Chronic DS: Medications - Discharge Medications Prescriptions: amoxicillin 500 mg PO TID #24 cap aspirin [Aspir-81] 81 mg PO DAILY #30 tab diltiazem HCl [Cardizem CD] 180 mg PO DAILY #30 cap diltiazem HCl 180 mg PO DAILY #30 tab duloxetine 60 mg PO BID #60 cap gabapentin [Neurontin] 300 mg PO BID #60 cap insulin aspart U-100 [Novolog U-100 Insulin aspart] 0 unit SUB-Q ACHS #3 ml insulin aspart U-100 [Novolog U-100 Insulin aspart] 1 sliding scale dose SUB-Q UD #100 ml insulin detemir U-100 [Levemir U-100 Insulin] 35 units SUB-Q BID #30 ml ketorolac 10 mg PO Q6H PRN #12 tab PRN Reason: Abdominal Pain lisinopril 10 mg PO DAILY #30 tab metformin 1,000 mg PO BID #60 tab ondansetron 4 mg PO Q6H PRN #12 tab PRN Reason: Nausea pravastatin 40 mg PO DAILY #30 tab DS: Summary Hospital Course: 63-year-old female with past history of diabetes, hyperlipidemia, GERD who presented via PCP recommendation for symptomatic hyperglycemia. Found to have an elevated lipase into the 3000s in the ED, epigastric tenderness on deep palpation. Likely pancreatitis, no known source at time of admission and enzymes improving. Discharge to home pending glucose control and resolution of pancreatitis. Patient hyperglycemic on arrival 05/19/2018 with blood glucose at 425 and received 10 units sliding scale insulin Blood sugars better controlled but with hypoglycemic episode on 05/20 warranting reduction of supplemental NovoLog She received a total of 57 units of NovoLog on 05/20, which is high dose and likely contributory to her hypoglycemic episode. Recent hemoglobin A1c in 02/2018 was 12.8% Continue her home Levemir 35 units twice per day, encourage patient to eat her meals and adjust insulin with above sliding scale. Continue 1800 kcal ADA diet Hold home metformin and Farxiga Review insulin over hospitalization Given patient skips meals, a basal/bolus regimen would have to be used carefully given risk of hypoglycemia Patient did have hypoglycemic episode 05/20 (evening) with resolution per protocol interventions. She notable received total of 57 units of insulin 05/20. Patient's glucose levels have been well controlled since 05/21 with glucose 130s- 170s and fasting 103. Continue current sliding scale Novolog as follows: Glucose less than 120: No supplemental NovoLog Glucose 086991: 4 units glucose 013024: 6 units Glucose 073928: 8 units Glucose 250-299: 10 units Glucose 387061: 12 units Glucose >350: give 12 units, then call Patient was discharged home with Levemir 35 units SQ BID (which was her home dose) and hiv counselor to to use the above-noted pre-prandial sliding scale for coverage. She will restart home doses of metformin and Farxiga at discharge. ACUTE PANCREATITIS: Resolved Patient presented with lipase of 3065 on arrival with mild epigastric abdominal tenderness Patient was held n.p.o. initially and received aggressive IV hydration, reinitiated ADA diet within 12 hours of arrival No abdominal pain on evaluation CT of the abdomen/pelvis with contrast showing no acute process or active inflammation on 05/20 Continue pain control with Toradol as needed with Morphine ordered for breakthrough pain. At discharge pt may take acetaminophen or NSAID as needed Lipase improved to 510 on labs 05/21, with labs on date of discharge within normal limits. Patient asymptomatic on 05/22. Unclear etiology given workup negative, though suspect related to poorly controlled glucose levels. HYPERTENSION: Chronic Continue home dose of Cardizem. Lisinopril 10 mg per day initiated 05/21 with goal BP obtained, will continue at discharge. Will continue to recommend holding of furosemide at discharge. Impression: Blood pressure elevated on admission likely secondary to pain and delayed administration of home medications. -Patient is on diltiazem and furosemide as an outpatient -Furosemide held as this can cause pancreatitis HYPERLIPIDEMIA: Chronic Continue home pravastatin Recent lipid panel from 02/2018 reviewed and are overall within normal - Time Spent with Patient Total time spent providing and/or coordinating discharge services: - Quality: VTE Deep Vein Thrombosis/Pulmonary Embolism Present on Admission: No Exam Vital signs: Vital Signs 05/21/18 16:45 05/21/18 19:32 05/21/18 19:52 Temperature 97.7 F 95.7 F L Pulse Rate 73 77 Respiratory Rate 16 16 18 Blood Pressure 142/68 H 162/88 H Pulse Oximetry 98 05/21/18 22:05 05/21/18 22:08 05/21/18 23:05 Temperature 98 F Pulse Rate 63 Respiratory Rate 16 Blood Pressure 137/71 Pulse Oximetry 99 97 97 05/22/18 04:00 05/22/18 07:51 05/22/18 09:00 Temperature 96.3 F L 97.7 F Pulse Rate 70 62 90 Respiratory Rate 16 20 Blood Pressure 131/62 128/62 Pulse Oximetry 97 97 05/22/18 12:00 Temperature 98.3 F Pulse Rate 70 Respiratory Rate 18 Blood Pressure 137/83 Pulse Oximetry 97 Intake & Output 05/21/18 05/22/18 05/22/18 18:59 06:59 18:59 Intake Total 236 / 2360 1999 Balance 236 / 2361999 Intake: IV 1999 Potassium Chlor 20 mEq/NACL 0. 1999 45% Inj 1,000 ML @ 200 mls/hr IV.CONT .Q5H [facility]UC[facility] Rx#:[id number] Oral 360 / 360 Other: Date of Last Bowel Movement 05/19/18 Narrative: GENERAL: Well-appearing female in no apparent distress. She is sitting up in bed. SKIN: Warm and dry. No rashes or ecchymoses. HEAD: Atraumatic. Normocephalic. EYES: Pupils equal and round. No scleral icterus. No injection or drainage. ENT: No nasal bleeding or discharge. Mucous membranes pink and moist. Dental caries (Multiple missing teeth with dental caries. No obvious abscess or fluctuance). NECK: Trachea midline. No JVD. CARDIOVASCULAR: Regular rate and rhythm with no murmurs. RESPIRATORY: No accessory muscle use. Clear to auscultation. Breath sounds equal bilaterally. GASTROINTESTINAL: Abdomen soft, nondistended. Hepatic and splenic margins not palpable. Mildly tender to palpation in the epigastric region. Absent: guarding , firm, rigid, organomegaly MUSCULOSKELETAL: Extremities without clubbing, cyanosis, or edema. No obvious deformities. NEUROLOGICAL: Awake and alert. No obvious cranial nerve deficits. Motor grossly within normal limits. Five out of 5 muscle strength in the arms and legs. Normal speech. PSYCHIATRIC: Appropriate mood and affect; insight and judgment normal. Results Procedures completed during hospitalization: None Labs on day of discharge: Labs from last 24 hours 05/22/18 05/22/18 05/22/18 13:30 08:58 01:05 POC Glucose 103 172 H Lipase 145 05/21/18 05/21/18 20:53 17:39 POC Glucose 165 H 149 H Lipase Preliminary micro results at discharge 05/20/18 15:04 Urine Culture - Preliminary Clean Catch Urine Yeast - ID to follow - Impressions ITS Impressions Chest X-Ray 05/19/18 20:42 CONCLUSION: Negative examination. Abdomen/Pelvis CT 05/20/18 00:00 CONCLUSION: 1. Negative CT abdomen/pelvis with contrast. Discharge Plan - Discharge Disposition Patient Disposition: 01 Discharge Home - Discharge Condition Condition: Stable - Discharge Order Discharge Orders: Discharge Order (Routine); Ordered 05/22/18 Ordered By: Madonna Ardon - Discharge Details Anticipated Discharge Date: 05/22/18 - Physicians Team Primary Care Provider: Samm Gonzalez Attending Provider: Sandoval Nina
== END 2018-05-22 15:46 | disposition home or self-care (01) ==
LOC: NEPE 18:35 → NEPFCDU 18:35 → INTOOBSV 22:08 → NEDA 22:08 → NEPFCDU 05-20 02:02
PROVIDERS: ADMIT Family Medicine; ATTEND Family Medicine